=== PATIENT | male | born 1955 | race Caucasian/White ===

== ENCOUNTER → 2017-07-07 | Outpatient (CLI) | payer OTHER ==
[~2017-07-07] MED LIST: CLIN150C17 PO; ENAL20TA PO; HYDR-3454 PO
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
== END ==
LOC: RAD 08:42
PROVIDERS: ATTEND Nurse Practitioner Community Health
DX: R22.2 Localized swelling, mass and lump, trunk (principal)
CPT/HCPCS: 76604

== ENCOUNTER → 2017-07-21 | Outpatient (CLI) | payer OTHER ==
[2017-07-21] MEDS: IOHEXOL 350 MG/ML 100 ML (OMNIPAQUE 350) VIAL IV ONE (08:22)
[2017-07-21] MEDS: NS 100 ML (IVPB) BAG IV ONE (08:22)
--- NOTE | 2017-07-21 09:50 | Diagnostic Imaging Report ---
PROCEDURE: CT chest with and without contrast. TECHNIQUE: Multiple contiguous axial images were obtained through the chest before and after administration of intravenous contrast. INDICATION: Chest wall mass. There are no previous CT examinations available for comparison. The ultrasound of the chest performed on 07/07/2017 failed to show any sign of an abnormal mass or fluid collection in the region of patient's palpable abnormality in the lower thorax just to the left of midline. On this exam, there is no discrete mass or cyst identified in this area either. The xiphoid process on the left is much more prominent than on the right and this may in part account for patient's palpable abnormality. The reconstructed sagittal images do show that there are small defects in the anterior attachment of the diaphragm near midline in this region. A portion of the mesenteric fat has extended through into these defects the anterior aspect of the thorax. However, there is no extension of the stomach or the large or small bowel in this region . The images through the upper abdomen show that the anterior abdominal wall is intact. The upper abdomen where visualized is also unremarkable for an acute abnormality. The spleen, pancreas, adrenals, kidneys, gallbladder, aorta and inferior vena cava where visualized appear to be within normal limits. The liver is not enlarged but the liver does appear to be of lower density than usually seen. This does suggest fatty metamorphosis. The images through the thorax show the heart size is within normal limits. There are coronary artery calcifications evident. The aorta is not abnormally dilated and there is no sign of dissection. The pulmonary arteries were not fully opacified but there is no definite defect to suggest a pulmonary embolus. There are mild chronic interstitial changes involving both lungs. There is no sign of failure, pneumonia or pleural effusion to suggest an acute abnormality. There is no mediastinal or hilar adenopathy. The thyroid gland is generally unremarkable. The bone windows show no evidence for fracture or for destructive lesion. IMPRESSION: 1. There is no mass or abnormal fluid collection in the upper abdomen to account for patient's palpable abnormality. There is a prominent xiphoid process on the left and this may in part account for patient's palpable abnormality. There are also small defects in the diaphragm on each side of the midline and a small amount of mesenteric fat has extended through these defects into the lower thorax. However, there is no herniation of the bowel or stomach into the upper thorax. 2. There is no acute cardiopulmonary abnormality evident. 3. There is coronary artery disease. 4. 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 Dictated by: Dictated on workstation # [id number]
== END ==
LOC: RAD 07:54
PROVIDERS: ATTEND Nurse Practitioner Community Health
DX: I25.10 Atherosclerotic heart disease of native coronary artery without angina pectoris (principal); K44.9 Diaphragmatic hernia without obstruction or gangrene
CPT/HCPCS: 71270

== ENCOUNTER 2018-10-16 19:16 | Emergency (ER) | payer OTHER ==
[~2018-10-16 19:16] MED LIST changes: -HYDR-3454 PO; +HYDR-3455 PO
[2018-10-16] MEDS ORDERED: VALACYCLOVIR 500 MG TAB (VALTREX) PO SCH (19:30)
[2018-10-16] MEDS ORDERED: HYDROcodone/APAP 5 MG/325 MG (LORTAB) TAB PO ONE (19:30)
[2018-10-16] MEDS ORDERED: VALA1000 PO (19:32)
[2018-10-16] MEDS ORDERED: ACHD5005 PO (19:32)
--- NOTE | 2018-10-16 19:33 | ED Integumentary General ---
General Stated Complaint: RASH Source: patient Exam Limitations: no limitations History of Present Illness Date Seen by Provider: Oct 16, 2018 Time Seen by Provider: 19:31 Allergies and Home Medications Allergies Coded Allergies: Penicillins (Unverified Allergy, Mild, 03/18/08) Home Medications Clindamycin HCl 150 Mg Capsule, 150 MG PO TID Prescribed by: RICHARD LOPEZ on 03/04/15 1253 Enalapril Maleate 20 Mg Tablet, 20 MG PO DAILY, (Reported) Hydrocodone/Acetaminophen 1 Each Tablet, 1 EACH PO Q4H PRN for PAIN Prescribed by: RICHARD LOPEZ on 03/04/15 1253 Past Zxpoptl-Ioeuzw-Cgwfol Hx Patient Social History Recent Foreign Travel: No Contact w/Someone Who Travel: No Immunizations Up To Date Tetanus Booster (TDap): Unknown Seasonal Allergies Seasonal Allergies: No Past Medical History Orthopedic Sleep Apnea Currently Using CPAP: Yes Hypertension Reproductive Disorders: No Back Injury, Chronic Back Pain Adverse Reaction/Blood Tranf: No Family Medical History Abdominal aortic aneurysm 19 FATHER Alzheimer's disease 19 MOTHER Cardiovascular disease PATERNAL GRANDFATHER Myocardial infarction PATERNAL GRANDFATHER No Pertinent Family Hx Physical Exam Vital Signs Capillary Refill : Departure Impression Primary Impression: Shingles Disposition: 01 HOME, SELF-CARE Condition: Stable/Unchanged Departure-Patient Inst. Decision time for Depature: 19:31 [facility]errals: [facility] (PCP/Family) Primary Care Physician Patient Instructions: [place] Add. Discharge Instructions: Take medications as directed. Follow-up with [facility] within 1 week for recheck. Return back to the emergency room for worsening symptoms or concerns as needed. Scripts Hydrocodone Bit/Acetaminophen (Hydrocodone/Acetaminophen 5/325mg Tablet) 1 Tab Tab 1-2 EACH PO Q6H PRN for PAIN-MODERATE MDD 10, #14 TAB Prov: KANIKA MILLER 10/16/18 Valacyclovir HCl (Valacyclovir) 1,000 Mg Tablet 1000 MG PO TID for 7 Days, #21 TAB Prov: KANIKA MILLER 10/16/18 KANIKA MILLER Oct 16, 2018 19:33
== END 2018-10-16 19:39 | disposition home or self-care (01) ==
LOC: EDUNIT# 19:16 → ER 19:18
DX: B02.9 Zoster without complications (principal); G47.30 Sleep apnea, unspecified; I10 Essential (primary) hypertension; Z82.49 Family history of ischemic heart disease and other diseases of the circulatory system; Z88.0 Allergy status to penicillin

== ENCOUNTER 2020-04-13 12:18 | Emergency (ER) | payer OTHER ==
[~2020-04-13] VITALS: Ht 175 cm; Wt 90.7 kg
[~2020-04-13 12:18] MED LIST changes: +ACHD5005 PO; -ENAL20TA PO; +ENAL20TA16 PO; +VALA10007 PO
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
--- NOTE | 2020-04-13 13:00 | Diagnostic Imaging Report ---
INDICATION: Right ankle pain. Time of exam 12:51 p.m. Three views of the right ankle were obtained. Alignment is normal. Ankle mortise is well maintained. The talar dome is smooth. No fracture or dislocation is identified. IMPRESSION: No acute bony abnormality is detected. Dictated by: Dictated on workstation # [id number]
[2020-04-13 13:48] VITALS: BP 140/74
== END 2020-04-13 13:48 | disposition home or self-care (01) ==
LOC: EDUNIT# 12:18 → ER 12:19
DX: S93.491A Sprain of other ligament of right ankle, initial encounter (principal); G89.29 Other chronic pain; M54.9 Dorsalgia, unspecified; I10 Essential (primary) hypertension; F17.200 Nicotine dependence, unspecified, uncomplicated; Z82.49 Family history of ischemic heart disease and other diseases of the circulatory system; Z88.0 Allergy status to penicillin; Z79.891 Long term (current) use of opiate analgesic; X50.1XXA Overexertion from prolonged static or awkward postures, initial encounter
CPT/HCPCS: 73610; 99283; L4350

== ENCOUNTER 2020-07-12 19:08 | Emergency (ER) | payer OTHER ==
[~2020-07-12] VITALS: Ht 175 cm; Wt 91.0 kg
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
[2020-07-12] MEDS ORDERED: LIDOCAINE 1% INJ 20 ML 20 ML VIAL ONE (21:34)
[2020-07-12] MEDS ORDERED: LIDOCAINE 1% INJ 20 ML 20 ML VIAL INJ ONE (21:45)
[2020-07-12] MEDS ORDERED: HYDROcodone/APAP 5 MG/325 MG (LORTAB) TAB PO ONE (21:45)
[2020-07-12] MEDS ORDERED: ACHD5005 PO (22:00)
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
[2020-07-12 22:10] VITALS: BP 144/84
[2020-07-12] MEDS ORDERED: RX-HYDROCODONE/APAP 5/325 MG #4 TAB PK PO PRN (22:15)
== END 2020-07-12 22:19 | disposition home or self-care (01) ==
LOC: EDUNIT# 19:08 → ER 19:10
DX: S62.396A Other fracture of fifth metacarpal bone, right hand, initial encounter for closed fracture (principal); S82.51XA Displaced fracture of medial malleolus of right tibia, initial encounter for closed fracture; I10 Essential (primary) hypertension; G89.29 Other chronic pain; M54.9 Dorsalgia, unspecified; Z82.49 Family history of ischemic heart disease and other diseases of the circulatory system; Z88.0 Allergy status to penicillin; Z79.891 Long term (current) use of opiate analgesic; V29.9XXA Motorcycle rider (driver) (passenger) injured in unspecified traffic accident, initial encounter
CPT/HCPCS: 29125; 73120; 73130; 73610; 99284; A4565

== ENCOUNTER 2023-03-07 12:24 | Emergency (ER) | payer MEDICARE, OTHER ==
[~2023-03-07] VITALS: Ht 175.3 cm; Wt 94.0 kg
[~2023-03-07 12:24] MED LIST changes: -CLIN150C17 PO; +CLIN150C20 PO; +ENAL-70 PO; -ENAL20TA16 PO
--- NOTE | 2023-03-07 12:44 | ED Upper Extremity ---
General Chief Complaint: Upper Extremity Stated Complaint: SPASM IN LT ARM AND SOMETIMES IN NECK Nursing Triage Note: Patient c/o interm. Lt. arm spasms that started 2 days ago. Patient denies any injury to his Lt. arm. Patient denies any neck or back pain that is new in last couple days. Patient denies any recent falls. Source: patient Exam Limitations: no limitations History of Present Illness Date Seen by Provider: Mar 07, 2023 Time Seen by Provider: 12:43 Initial Comments 67-year-old male presents to the ER with complaints of tremors and muscle spasms in left arm which has been going on for last couple days. The tremors are intermittent. States it kind of feels like his muscles are spasming. He states the tremors are more likely to occur when he is lifting or using his arm. Allergies and Home Medications Allergies Coded Allergies: Penicillins (Unverified Allergy, Mild, 03/18/08) Patient Home Medication List Home Medication List Reviewed: Yes Clindamycin HCl (Clindamycin HCl) 150 Mg Capsule, 150 MG PO TID Prescribed by: RICHARD LOPEZ on 03/04/15 1253 Cyclobenzaprine HCl (Cyclobenzaprine HCl) 10 Mg Tablet, 10 MG PO TID Prescribed by: Jackelin Kirkpatrick on 03/07/23 1553 Enalapril Maleate (Enalapril Maleate) 20 Mg Tablet, 20 MG PO DAILY, (Reported) Entered as Reported by: RENETTA DIAZ on 03/04/15 1023 Hydrocodone Bit/Acetaminophen (Lortab 5 Mg Tablet) 1 Tab Tab, 1-2 EACH PO Q6H PRN for PAIN-MODERATE Prescribed by: KANIKA MILLER on 10/16/18 193 Hydrocodone/Acetaminophen (Vicodin 5-300 mg Tablet) 1 Each Tablet, 1 EACH PO Q4H PRN for PAIN Prescribed by: RICHARD LOPEZ on 03/04/15 1253 Hydrocodone/Acetaminophen (Hydrocodone-Acetamin 5-325 mg) 1 Each Tablet, 1 EACH PO Q6H PRN for PAIN-BREAKTHROUGH Prescribed by: JOSE GONZALEZ on 07/12/200 Metformin HCl (Metformin HCl) 500 Mg Tablet, 500 MG PO BID Prescribed by: Jackelin Kirkpatrick on 03/07/23 1553 Valacyclovir HCl (Valacyclovir) 1,000 Mg Tablet, 1,000 MG PO TID Prescribed by: KANIKA MILLER on 10/16/181931 Review of Systems Constitutional: see HPI Past Hpkoinj-Zcjpmx-Baevae Hx Patient Social History Tobacco Use?: Yes Tobacco type used: Cigarettes Smoking Status: Current Everyday Smoker Use of E-Cig and/or Vaping dev: No Substance use?: No Alcohol Use?: Yes Alcohol Frequency: Once in a while Immunizations Up To Date Tetanus Booster (TDap): Unknown Influenza Vaccine Up-to-Date: No; Not Current Seasonal Allergies Seasonal Allergies: No Past Medical History Surgery/Hospitalization HX: HTN Surgeries: Yes (TEETH EXTRACTIONS, LEFT ANKLE ORIF) Orthopedic Respiratory: Yes Sleep Apnea, COPD Currently Using CPAP: Yes Cardiac: Yes Hypertension Neurological: No Reproductive Disorders: No Gastrointestinal: No Musculoskeletal: Yes Back Injury, Chronic Back Pain Endocrine: No Cancer: No Psychosocial: No Integumentary: No Blood Disorders: No Adverse Reaction/Blood Tranf: No Family Medical History Abdominal aortic aneurysm 19 FATHER Alzheimer's disease 19 MOTHER Cardiovascular disease PATERNAL GRANDFATHER Myocardial infarction PATERNAL GRANDFATHER No Pertinent Family Hx Physical Exam Vital Signs Vital Signs - First Documented 03/07/23 03/07/23 12:31 15:50 Temp 36.7 Pulse 90 Resp 18 B/P (MAP) 173/98 (123) Pulse Ox 97 O2 Delivery Room Air Capillary Refill : Height, Weight, BMI Height: 5'9.00" Weight: 230lbs. 6.0oz. [id number]; 30.00 BMI Method:Actual General Appearance: WD/WN, no apparent distress Neck: non-tender, full range of motion, supple, normal inspection Cardiovascular: regular rate, rhythm Respiratory: lungs clear, normal breath sounds, no respiratory distress, no accessory muscle use Back: normal inspection, no vertebral tenderness Shoulder: no evidence of injury, normal ROM (Tremor with movement) Elbow/Forearm: normal ROM (Tremor with movement), Left Hand: normal ROM Neurologic/Psychiatric: alert, normal mood/affect Skin: normal color, warm/dry Progress/Results/Core Measures Results/Orders Lab Results Laboratory Tests Test 03/07/23 13:21 03/07/23 14:15 03/07/23 14:42 03/07/23 15:08 Range/Units White Blood Count 12.0 H 4.3-11.0 10^3/uL Red Blood Count 6.04 H 4.30-5.52 10^6/uL Hemoglobin 17.8 H 13.3-17.7 g/dL Hematocrit 51 40-54 % Mean Corpuscular Volume 84 80-99 fL Mean Corpuscular Hemoglobin 30 25-34 pg Mean Corpuscular Hemoglobin Concent 35 32-36 g/dL Red Cell Distribution Width 12.5 10.0-14.5 % Platelet Count 194 130-400 10^3/uL Mean Platelet Volume 11.0 9.0-12.2 fL Immature Granulocyte % (Auto) 1 % Neutrophils (%) (Auto) 63 42-75 % Lymphocytes (%) (Auto) 24 12-44 % Monocytes (%) (Auto) 10 0-12 % Eosinophils (%) (Auto) 2 0-10 % Basophils (%) (Auto) 1 0-10 % Neutrophils # (Auto) 7.6 1.8-7.8 10^3/uL Lymphocytes # (Auto) 2.8 1.0-4.0 10^3/uL Monocytes # (Auto) 1.2 H 0.0-1.0 10^3/uL Eosinophils # (Auto) 0.2 0.0-0.3 10^3/uL Basophils # (Auto) 0.1 0.0-0.1 10^3/uL Immature Granulocyte # (Auto) 0.1 0.0-0.1 10^3/uL Sodium Level 126 L 135-145 MMOL/L Potassium Level 4.4 3.6-5.0 MMOL/L Chloride Level 94 L 98-107 MMOL/L Carbon Dioxide Level 22 21-32 MMOL/L Anion Gap 10 5-14 MMOL/L Blood Urea Nitrogen 8 7-18 MG/DL Creatinine 1.15 0.60-1.30 MG/DL Estimat Glomerular Filtration Rate 70 BUN/Creatinine Ratio 7 Glucose Level 630 *H 70-105 MG/DL Calcium Level 9.2 8.5-10.1 MG/DL Corrected Calcium 9.3 8.5-10.1 MG/DL Total Bilirubin 0.4 0.1-1.0 MG/DL Aspartate Amino Transf (AST/SGOT) 16 5-34 U/L Alanine Aminotransferase (ALT/SGPT) 23 0-55 U/L Alkaline Phosphatase 182 H 40-136 U/L Total Protein 7.1 6.4-8.2 GM/DL Albumin 3.9 3.2-4.5 GM/DL Venous Blood pH 7.38 7.31-7.41 Venous Blood Partial Pressure CO2 47 40-52 MMHG Venous Blood HCO3 27 22-28 MMOL/L Urine Color YELLOW Urine Clarity CLEAR Urine pH 5.5 5-9 Urine Specific Virgin <=1.005 1.016-1.022 Urine Protein NEGATIVE NEGATIVE Urine Glucose (UA) 3+ H NEGATIVE Urine Ketones NEGATIVE NEGATIVE Urine Nitrite NEGATIVE NEGATIVE Urine Bilirubin NEGATIVE NEGATIVE Urine Urobilinogen 0.2 < = 1.0 MG/DL Urine Leukocyte Esterase NEGATIVE NEGATIVE Urine RBC (Auto) NEGATIVE NEGATIVE Urine RBC NONE /HPF Urine WBC NONE /HPF Urine Squamous Epithelial Cells 0-2 /HPF Urine Crystals NONE /LPF Urine Bacteria NEGATIVE /HPF Urine Casts NONE /LPF Urine Mucus NEGATIVE /LPF Urine Culture Indicated NO Glucometer 350 H 70-110 MG/DL My Orders Orders - JACKELIN HARDIN APRN Cbc With Automated Diff (03/07/23 12:51) Comprehensive Metabolic Panel (03/07/23 12:51) Ed Iv/Invasive Line Start (03/07/23 12:58) Orphenadrine Inj (Ed Only) (Orphenadrine (03/07/23 13:15) Venous Blood Gas (03/07/23 14:01) Ua Culture If Indicated (03/07/23 14:01) Ns Iv 1000 Ml (Ns Iv 1000 Ml) (03/07/23 14:15) Insulin (Regular) Per Unit (Insulin (Reg (03/07/23 14:15) Medications Given in ED Current Medications Medications Dose Ordered Sig/Sanchez Route Start Time Stop Time Status Last Admin Dose Admin Insulin Human Regular 5 unit ONCE ONCE IV 03/07/23 14:15 03/07/23 14:16 DC 03/07/23 14:17 5 UNIT Orphenadrine Citrate 60 mg ONCE ONCE IM 03/07/23 13:15 03/07/23 13:16 DC 03/07/23 13:28 60 MG Vital Signs/I&O 03/07/23 03/07/23 12:31 15:50 Temp 36.7 Pulse 90 83 Resp 18 16 B/P (MAP) 173/98 (123) 163/79 Pulse Ox 97 O2 Delivery Room Air Room Air Blood Pressure Mean: 123 Progress Progress Note : Progress Note Patient seen and evaluated, resting comfortably in bed, no acute distress. Based on exam and symptoms, work-up initiated, CBC and CMP, Norflex ordered. 1402 Labs reviewed. CMP shows slightly elevated WBC 12.0, slightly elevated RBC 6.04, slightly elevated hemoglobin 17.8. CMP shows decreased sodium 126, decreased chloride 94, critically elevated glucose 630. IV fluids and IV insulin ordered at this time. Urinalysis and venous blood gas also ordered. 1537 additional labs reviewed. Venous blood gas shows normal pH. Urinalysis negative for ketones, does show 3+ glucose. Blood sugar improved to 350 after IV fluids and insulin. Results discussed with patient. Patient informed that he is diabetic and will need to be started on metformin. Will discharge with prescription for metformin. Diet education also provided. Patient instructed that he needs to follow-up with primary care provider for management of his diabetes. Muscle spasms and tremors may be related to decreased sodium on labs. Patient reports improved symptoms after IV fluids and Norflex. Will discharge with prescription for Flexeril as well. Discharge instructions and return precautions provided. Departure Impression Primary Impression: Muscle spasm Additional Impressions: Hyponatremia Hyperglycemia Diabetes Disposition: HOME, SELF-CARE Condition: Stable Departure-Patient Inst. Decision time for Depature: 15:37 Referrals: [facility] (PCP) Primary Care Physician Patient Instructions: Diabetes and diet, Muscle Spasm ED Add. Discharge Instructions: Take metformin twice a day for your diabetes. It can cause diarrhea, this usually improves if you continue taking it. Take Flexeril up to 3 times a day as needed for muscle spasms. You need to follow-up with a primary care provider to manage your diabetes. They will be responsible for refills of your medications. You should avoid breads, pastas, and sweets. Best foods to eat for diabetes are meats and vegetables. You should also limit your fruit intake. Return for any new, concerning, or worsening symptoms. All discharge instructions reviewed with patient and/or family. Voiced understanding. Scripts Cyclobenzaprine HCl (Cyclobenzaprine HCl) 10 Mg Tablet 10 MG PO TID, #21 TAB 0 Refills Prov: JACKELIN HARDIN APRN 03/07/23 Metformin HCl (Metformin HCl) 500 Mg Tablet 500 MG PO BID for 30 Days, #60 TAB 0 Refills Prov: JACKELIN HARDIN APRN 03/07/23 JACKELIN HARDIN APRN Mar 07, 2023 12:44
[2023-03-07] MEDS ORDERED: ORPHENADRINE 60 MG/2 ML AMP (ED ONLY) IV ONE (13:00)
[2023-03-07] MEDS ORDERED: ORPHENADRINE 60 MG/2 ML AMP (ED ONLY) IM ONE (13:15)
[2023-03-07 13:27] LABS: BASOPHILS # (AUTO) 0.1 10^3/uL (0.0-0.1); BASOPHILS % (AUTO) 1 % (0-10); EOSINOPHILS # (AUTO) 0.2 10^3/uL (0.0-0.3); EOSINOPHILS % (AUTO) 2 % (0-10); HEMATOCRIT 51 % (40-54); HEMOGLOBIN 17.8 g/dL (13.3-17.7); LYMPHOCYTES # (AUTO) 2.8 10^3/uL (1.0-4.0); LYMPHOCYTES % (AUTO) 24 % (12-44); MEAN CORPUSCULAR HEMOGLOBIN 30 pg (25-34); MEAN CORPUSCULAR HGB CONC 35 g/dL (32-36); MEAN CORPUSCULAR VOLUME 84 fL (80-99); MONOCYTES # (AUTO) 1.2 10^3/uL (0.0-1.0); MONOCYTES % (AUTO) 10 % (0-12); NEUTROPHILS # (AUTO) 7.6 10^3/uL (1.8-7.8); NEUTROPHILS % (AUTO) 63 % (42-75); PLATELET COUNT 194 10^3/uL (130-400)
[2023-03-07 13:49] LABS: ALBUMIN 3.9 GM/DL (3.2-4.5); BILIRUBIN,TOTAL 0.4 MG/DL (0.1-1.0); CALCIUM 9.2 MG/DL (8.5-10.1); CREATININE SERUM 1.15 MG/DL (0.60-1.30); POTASSIUM 4.4 MMOL/L (3.6-5.0); TOTAL PROTEIN 7.1 GM/DL (6.4-8.2)
[2023-03-07] MEDS ORDERED: NS IV 1000 ML 1,000 ML IV SCH (14:15)
[2023-03-07] MEDS ORDERED: inSUlin (REGULAR) HUMAN 1 UNIT/0.01 ML (CHARGE PER UNIT) IV ONE (14:15)
[2023-03-07 15:11] LABS: BILIRUBIN,URINE NEGATIVE (NEGATIVE); CLARITY,URINE CLEAR; COLOR,URINE YELLOW; GLUCOSE, URINE (UA) 3+ (NEGATIVE); KETONES,URINE NEGATIVE (NEGATIVE); NITRITE,URINE NEGATIVE (NEGATIVE); PH,URINE 5.5 (5-9); PROTEIN,URINE NEGATIVE (NEGATIVE)
[2023-03-07 15:12] LABS: BACTERIA,URINE NEGATIVE /HPF; LEUKOCYTE ESTERASE ,URINE NEGATIVE (NEGATIVE); SQUAMOUS EPITHELIAL CELL,UR 0-2 /HPF
[2023-03-07] MEDS ORDERED: CYCL10TA25 PO ×2 (15:40→15:53)
[2023-03-07] MEDS ORDERED: METF-397 PO ×2 (15:40→15:53)
[2023-03-07 15:50] VITALS: BP 163/79
== END 2023-03-07 15:50 | disposition home or self-care (01) ==
LOC: EDUNIT# 12:24 → ER 12:28
DX: M62.838 Other muscle spasm (principal); E11.65 Type 2 diabetes mellitus with hyperglycemia; E87.1 Hypo-osmolality and hyponatremia; G47.30 Sleep apnea, unspecified; F17.210 Nicotine dependence, cigarettes, uncomplicated; Z99.89 Dependence on other enabling machines and devices; Z28.310 Unvaccinated for COVID-19
CPT/HCPCS: 36415; 80053; 81000; 82805; 82947; 85025

== ENCOUNTER 2023-05-11 18:09 | Inpatient (IN) | payer MEDICARE ==
[~2023-05-11] VITALS: Ht 175 cm; Wt 98.4 kg
[~2023-05-11 18:09] MED LIST changes: +CYCL10TA25 PO; +METF-397 PO
--- NOTE | 2023-05-11 18:37 | ED Upper Extremity ---
General Chief Complaint: Upper Extremity Stated Complaint: POSS STROKE, SPASMS IN LT ARM, LT HAND SWOLLEN Source: patient, old records History of Present Illness Date Seen by Provider: May 11, 2023 Time Seen by Provider: 18:23 Initial Comments PT ARRIVES VIA POV WITH A MALE FRIEND--SENT HERE FROM [facility] WANTS WHEELCHAIR ON ARRIVAL, BUT PT IS ABLE TO GET IN AND OUT OF WHEELCHAIR AND AMBULATE ON HIS OWN, HAS A CANE--WITHOUT DIFFICULTY C/O SPASMS TO LEFT ARM WHEN HE TURNS HIS HEAD/NECK TO THE LEFT FOR THE LAST "2 WEEKS" PT STATES LOOKING STRAIGHT AHEAD MAKES IT GO AWAY NO PAIN AT THIS TIME NO NUMBNESS OR TINGLING PT STATES HIS LEFT HAND IS SWOLLEN, BUT PT IS CONSTANTLY HOLDING HIS LEFT ARM AT THE WRIST, AND IS HOLDING IT IN DEPENDENT POSITION HE IS ABLE TO USE HIS LEFT HAND AND MOVE HIS LEFT ARM TO SOME DEGREE NO INJURY TO NECK OR ARM NO HEADACHE NO VISION CHANGES NO DIZZINESS WAS SEEN HERE 2022 FOR THIS EXACT SAME COMPLAINT, SO SYMPTOMS HAVE ACTUALLY BEEN GOING ON FOR AT LEAST 2 MONTHS. HE HAS NOT SEEN ANYONE ELSE BEFORE OR SINCE THEN, UNTIL TONIGHT SYMPTOMS NO DIFFERENT TONIGHT OF NOTE, LAB DONE AT THAT VISIT AND GLUCOSE WAS 630. PT HAD NOT BEEN DX WITH DIABETES PRIOR TO THAT. HE WAS DISMISSED WITH RX FOR METFORMIN--PT STATES HE TOOK THEM ALL. HE HAS NOT FOLLOWED UP WITH [facility] FOR THAT PROBLEM PT STATES HE HAS NO MEDICAL PROBLEMS AND DOES NOT TAKE ANY MEDICATIONS--OLD RECORDS LIST HTN, SMOKES 1 PPD, OCCASIONAL ETOH--CLAIMS ONLY 1 DRINK IN THE LAST YEAR. DENIES DRUG USE HAS HAD LEFT ANKLE FX/ORIF AND LEFT HAND FX/ORIF. NO OTHER SURGERIES PT IS NOT COVID OR FLU VACCINATED PCP: [facility] Allergies and Home Medications Allergies Coded Allergies: Penicillins (Unverified Allergy, Mild, 03/18/08) Patient Home Medication List Home Medication List Reviewed: Yes Clindamycin HCl (Clindamycin HCl) 150 Mg Capsule, 150 MG PO TID Prescribed by: RICHARD LOPEZ on 03/04/15 1253 Cyclobenzaprine HCl (Cyclobenzaprine HCl) 10 Mg Tablet, 10 MG PO TID Prescribed by: Jackelin Kirkpatrick on 03/07/23 1553 Enalapril Maleate (Enalapril Maleate) 20 Mg Tablet, 20 MG PO DAILY, (Reported) Entered as Reported by: RENETTA DIAZ on 03/04/15 1023 Hydrocodone Bit/Acetaminophen (Lortab 5 Mg Tablet) 1 Tab Tab, 1-2 EACH PO Q6H PRN for PAIN-MODERATE Prescribed by: KNAIKA MILLER on 10/16/181931 Hydrocodone/Acetaminophen (Vicodin 5-300 mg Tablet) 1 Each Tablet, 1 EACH PO Q4H PRN for PAIN Prescribed by: RICHARD LOPEZ on 03/04/15 1253 Hydrocodone/Acetaminophen (Hydrocodone-Acetamin 5-325 mg) 1 Each Tablet, 1 EACH PO Q6H PRN for PAIN-BREAKTHROUGH Prescribed by: JOSE GONZALEZ on 07/12/20 2200 Metformin HCl (Metformin HCl) 500 Mg Tablet, 500 MG PO BID Prescribed by: Jackelin Kirkpatrick on 03/07/23 1553 Valacyclovir HCl (Valacyclovir) 1,000 Mg Tablet, 1,000 MG PO TID Prescribed by: KANIKA MILLER on 10/16/181931 Review of Systems Constitutional: no symptoms reported EENTM: no symptoms reported Respiratory: no symptoms reported Cardiovascular: no symptoms reported Gastrointestinal: no symptoms reported Genitourinary: no symptoms reported Musculoskeletal: see HPI Skin: no symptoms reported Psychiatric/Neurological: See HPI Past Sbkytkc-Wtdjok-Vywlau Hx Patient Social History Tobacco Use?: Yes Tobacco type used: Cigarettes Smoking Status: Current Everyday Smoker Substance use?: Yes Substance type: Methamphetamine Alcohol Use?: Yes Alcohol Frequency: Once in a while Immunizations Up To Date Tetanus Booster (TDap): Unknown Seasonal Allergies Seasonal Allergies: No Past Medical History Surgery/Hospitalization HX: HTN Surgeries: Yes (TEETH EXTRACTIONS, LEFT ANKLE ORIF; SCROTAL ABSCESS I&D 2014) Orthopedic Respiratory: Yes Sleep Apnea, COPD Currently Using CPAP: Yes Cardiac: Yes Hypertension Neurological: No Reproductive Disorders: No Gastrointestinal: No Musculoskeletal: Yes (LEFT ANKLE FX/ORIF; LEFT HAND FX) Back Injury, Chronic Back Pain, Fractures Endocrine: No Cancer: No Psychosocial: No Integumentary: No Blood Disorders: No Adverse Reaction/Blood Tranf: No Family Medical History Abdominal aortic aneurysm 19 FATHER Alzheimer's disease 19 MOTHER Cardiovascular disease PATERNAL GRANDFATHER Myocardial infarction PATERNAL GRANDFATHER No Pertinent Family Hx SOCIAL HISTORY: -SMOKES 1 PPD -ETOH--"OCCASIONAL USE" -DRUGS UDS + FOR AMPHETAMINES / METHAMPHETAMINES ON 05/11/23--PT STATES HE SMOKES IT. DENIES IV USE. Physical Exam Vital Signs Vital Signs - First Documented 05/11/23 05/11/23 05/12/23 18:22 22:47 00:58 Temp 36.8 Pulse 105 Resp 18 B/P (MAP) 180/96 (124) Pulse Ox 99 O2 Delivery Room Air O2 Flow Rate 2.00 FiO2 30 Capillary Refill : Height, Weight, BMI Height: 5'9.00" Weight: 230lbs. 6.0oz. 104.926473ml; 30.00 BMI Method:Actual General Appearance: WD/WN, no apparent distress, other (FILTHY, UNKEMPT, MALODOROUS; HE IS TALKATIVE, JOVIAL, LAUGHING. DOES NOT APPEAR TO BE IN ANY DISCOMFORT OR DISTRESS) HEENT: PERRL/EOMI, other (EDENTULOUS. WEARS GLASSES, WHICH ARE FILTHY) Cardiovascular: regular rate, rhythm Respiratory: normal breath sounds Gastrointestinal: non tender, soft Back: normal inspection, no CVA tenderness, no vertebral tenderness Shoulder: normal inspection Elbow/Forearm: normal inspection Wrist: Yes normal inspection Hand: no evidence of injury, swelling (MILD SWELLING OF LEFT HAND, PT CONSTANTLY HOLDING HIS LEFT WRIST. ) Reflexes: 2+ bicep (R), 2+ bicep (L) Neurologic/Tendon: other (ON TURNING HIS HEAD TO THE LEFT, THERE IS [id number] MOVEMENTS OF HIS LEFT ARM, WITH CONTRACTURES OF HIS LEFT HAND AND ELBOW, WITH SLIGHT TONIC-CLONIC ACTIVITY OF HEAD, AND EYES FIXED TO THE LEFT. PT IS AWAKE/ALERT, ORIENTED AND TALKING THROUGHOUT THE EPISODE, THIS DOES RESOLVE WHEN HE VOLUNTARILY TURNS HIS HEAD BACK TO MIDLINE OR TO THE RIGHT. THIS ONLY OCCURS AFTER HE TURNS HIS HEAD TO THE LEFT. THERE IS NO INVOLVEMENT OF HIS LEFT OR TRUNK. THE SAME OCCURRS WITH RAISING OF HIS LEFT ARM, EVEN WHEN LOOKING STRAIGHT AHEAD OR THE RIGHT. DTR'S INTACT. 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, alert, normal mood/affect, oriented x 3, other (PT DOES HAVE SOME ATAXIC MOVEMENTS OF HIS LEFT ARM, BUT IS ABLE TO MOVE IT--HAS GROSS MOTOR MOVEMENT ) Skin: normal color, warm/dry Progress/Results/Core Measures Results/Orders Lab Results Laboratory Tests Test 05/11/23 18:50 05/11/23 19:58 05/12/23 00:46 05/12/23 00:55 Range/Units White Blood Count 13.9 H 4.3-11.0 10^3/uL Red Blood Count 5.92 H 4.30-5.52 10^6/uL Hemoglobin 18.0 H 13.3-17.7 g/dL Hematocrit 51 40-54 % Mean Corpuscular Volume 85 80-99 fL Mean Corpuscular Hemoglobin 30 25-34 pg Mean Corpuscular Hemoglobin Concent 36 32-36 g/dL Red Cell Distribution Width 12.4 10.0-14.5 % Platelet Count 206 130-400 10^3/uL Mean Platelet Volume 11.1 9.0-12.2 fL Immature Granulocyte % (Auto) 1 % Neutrophils (%) (Auto) 61 42-75 % Lymphocytes (%) (Auto) 25 12-44 % Monocytes (%) (Auto) 12 0-12 % Eosinophils (%) (Auto) 1 0-10 % Basophils (%) (Auto) 1 0-10 % Neutrophils # (Auto) 8.5 H 1.8-7.8 10^3/uL Lymphocytes # (Auto) 3.4 1.0-4.0 10^3/uL Monocytes # (Auto) 1.6 H 0.0-1.0 10^3/uL Eosinophils # (Auto) 0.2 0.0-0.3 10^3/uL Basophils # (Auto) 0.1 0.0-0.1 10^3/uL Immature Granulocyte # (Auto) 0.1 0.0-0.1 10^3/uL Erythrocyte Sedimentation Rate 1 0-30 MM/HR Prothrombin Time 12.8 12.2-14.7 SEC INR Comment 0.9 0.8-1.4 Activated Partial Thromboplast Time 28 24-35 SEC Sodium Level 130 L 135-145 MMOL/L Potassium Level 3.7 3.6-5.0 MMOL/L Chloride Level 95 L 98-107 MMOL/L Carbon Dioxide Level 21 21-32 MMOL/L Anion Gap 14 5-14 MMOL/L Blood Urea Nitrogen 14 7-18 MG/DL Creatinine 1.08 0.60-1.30 MG/DL Estimat Glomerular Filtration Rate 76 BUN/Creatinine Ratio 13 Glucose Level 379 H 70-105 MG/DL Calcium Level 9.3 8.5-10.1 MG/DL Corrected Calcium 9.3 8.5-10.1 MG/DL Magnesium Level 2.0 1.6-2.4 MG/DL Total Bilirubin 0.6 0.1-1.0 MG/DL Aspartate Amino Transf (AST/SGOT) 14 5-34 U/L Alanine Aminotransferase (ALT/SGPT) 19 0-55 U/L Alkaline Phosphatase 137 H 40-136 U/L Total Creatine Kinase 64 30-200 U/L Creatine Kinase MB 3.5 <6.6 NG/ML Myoglobin 37.5 10.0-92.0 NG/ML C-Reactive Protein High Sensitivity 0.35 0.00-0.50 MG/DL Total Protein 7.4 6.4-8.2 GM/DL Albumin 4.0 3.2-4.5 GM/DL Beta-Hydroxybutyrate (Chem panel) 0.15 0.00-0.27 MMOL/L TSH [place] Testing 1.38 0.35-4.94 UIU/ML Serum Alcohol < 10 <10 MG/DL Urine Color YELLOW Urine Clarity CLEAR Urine pH 5.5 5-9 Urine Specific Hall 1.010 L 1.016-1.022 Urine Protein NEGATIVE NEGATIVE Urine Glucose (UA) 3+ H NEGATIVE Urine Ketones NEGATIVE NEGATIVE Urine Nitrite NEGATIVE NEGATIVE Urine Bilirubin NEGATIVE NEGATIVE Urine Urobilinogen 0.2 < = 1.0 MG/DL Urine Leukocyte Esterase NEGATIVE NEGATIVE Urine RBC (Auto) TRACE H NEGATIVE Urine RBC RARE /HPF Urine WBC NONE /HPF Urine Squamous Epithelial Cells 2-5 /HPF Urine Crystals NONE /LPF Urine Bacteria TRACE /HPF Urine Casts NONE /LPF Urine Mucus NEGATIVE /LPF Urine Culture Indicated NO Urine Opiates Screen NEGATIVE NEGATIVE Urine Oxycodone Screen NEGATIVE NEGATIVE Urine Methadone Screen NEGATIVE NEGATIVE Urine Barbiturates Screen NEGATIVE NEGATIVE Ur Tricyclic Antidepressants Screen NEGATIVE NEGATIVE Urine Phencyclidine Screen NEGATIVE NEGATIVE Urine Amphetamines Screen POSITIVE H NEGATIVE Urine Methamphetamines Screen POSITIVE H NEGATIVE Urine Benzodiazepines Screen NEGATIVE NEGATIVE Urine Cocaine Screen NEGATIVE NEGATIVE Urine Cannabinoids Screen NEGATIVE NEGATIVE Glucometer 305 H 70-110 MG/DL Arterial Blood pH 7.44 H 7.37-7.43 Arterial Blood Partial Pressure CO2 38 35-45 MMHG Arterial Blood Partial Pressure O2 127 H 79-93 MMHG Arterial Blood HCO3 26 23-27 MMOL/L Arterial Blood Total CO2 27.0 21.0-31.0 MMOL/L Arterial Blood Oxygen Saturation 100 94-100 % Arterial Blood Base Excess 1.7 -2.5-2.5 MMOL/L Blood Gas Ventilator Setting NO Blood Gas Inspired Oxygen 3L Test 05/12/23 01:47 Range/Units Glucometer 318 H 70-110 MG/DL My Orders Orders - ROXANNE MALDONADO DO Ed Iv/Invasive Line Start (05/11/23 18:28) Ekg Tracing (05/11/23 18:28) Monitor-Rhythm Ecg Trace Only (05/11/23 18:28) Ct Head/Cervical Spine Wo (05/11/23 18:28) Chest 1 View, Ap/Pa Only (05/11/23 18:28) Alcohol (05/11/23 18:28) Cbc And Automated Diff (05/11/23 18:) Comprehensive Metabolic Panel (05/11/23 18:) Creatine Kinase (05/11/23 18:28) Creatine Kinase Mb (05/11/23 18:28) Hs C Reactive Protein (05/11/23 18:28) Drug Screen Stat (Urine) (05/11/23 18:28) Magnesium (05/11/23 18:28) Protime With Inr (05/11/23 18:28) Partial Thromboplastin Time (05/11/23 18:28) Thyroid Analyzer (05/11/23 18:28) Ua Culture If Indicated (05/11/23 18:28) Erythrocyte Sedimentation Rate (05/11/23 18:28) Myoglobin Serum (05/11/23 18:28) Ct Angio Head/Neck (05/11/23 19:49) Ct Head Perfusion W/ Contrast (05/11/23 19:49) Iohexol Injection (Omnipaque 350 Mg/Ml 1 (05/11/23 20:00) Received Contrast (Hold Metformin- Contr (05/11/23 20:00) Ns (Ivpb) 100 Ml (Sodium Chloride 0.9% 1 (05/11/23 20:00) Aspirin Chewable Tablet (Aspirin Chewabl (05/11/23 22:15) Levetiracetam 1000 Mg/Ns 100ml (Keppra I (05/11/23 22:15) Lorazepam Injection (Lorazepam Injection (05/11/23 22:11) Lorazepam Injection (Lorazepam Injection (05/11/23 22:30) Labetalol Injection (Sdv) (Labetalol Inj (05/11/23 22:30) Beta Hydroxybutyrate (05/11/23 22:26) Hemoglobin A1c (05/11/23 22:26) Medications Given in ED Current Medications Medications Dose Ordered Sig/Sanchez Route Start Time Stop Time Status Last Admin Dose Admin Iohexol 150 ml ONCE ONCE IV 05/11/23 20:00 05/11/23 20:01 DC 05/11/23 20:24 120 ML Labetalol HCl 20 mg ONCE ONCE IV 05/11/23 22:30 05/11/23 22:31 DC 05/11/23 22:27 20 MG Levetiracetam 100 ml @ 400 mls/hr ONCE ONCE IV 05/11/23 22:15 05/11/23 22:29 DC 05/11/23 22:24 400 MLS/HR Lorazepam 2 mg ONCE ONCE IVP 05/11/23 22:30 05/11/23 22:31 DC 05/11/23 22:11 1 MG Sodium Chloride 100 ml ONCE ONCE IV 05/11/23 20:00 05/11/23 20:01 DC 05/11/23 20:25 100 ML Vital Signs/I&O 05/11/23 05/11/23 05/11/23 05/11/23 18:22 22:47 22:50 22:55 Temp 36.8 Pulse 105 78 80 Resp 18 16 B/P (MAP) 180/96 (124) 132/86 Pulse Ox 99 O2 Delivery Room Air Nasal Cannula Nasal Cannula O2 Flow Rate 2.00 2.00 05/11/23 05/12/23 05/12/23 05/12/23 23:00 00:00 00:04 00:30 Temp 36.1 36.4 Pulse 78 89 Resp 22 B/P (MAP) 135/78 (97) 144/86 (105) Pulse Ox 98 98 O2 Delivery Nasal Cannula Nasal Cannula Nasal Cannula O2 Flow Rate 2.00 3.00 3.00 05/12/23 05/12/23 05/12/23 05/12/23 00:55 00:58 01:00 01:00 Pulse 86 86 90 92 Resp 21 B/P (MAP) 135/79 (97) Pulse Ox 98 98 98 O2 Delivery NIV CPAP O2 Flow Rate 30.00 30.00 FiO2 30 05/12/23 05/12/23 01:19 02:00 Temp 36.3 Pulse 76 B/P (MAP) 147/68 (94) Pulse Ox 97 O2 Delivery NIV CPAP O2 Flow Rate 30.00 Progress Progress Note : Progress Note VITALS ON ARRIVAL: TEMP 36.8, HR 105, RR 18, BP 180/96, O2 SAT 99% ON ROOM AIR LABS: -CBC WITH WBC 13.9, HGB 18.0, PLT 206,000 -CMP WITH NA 130, K 3.7, BUN 14, CR 1.09, GLU 379, LFT'S NORMAL -MG 2.0 -CK, CK-MB, MYOGLOBIN ALL NORMAL -CRP 0.35 -SED RATE 1 -TSH 1.38 -BETAHYDROXYBUTYRATE 0.15 -PT/PTT/INR NORMAL -UA WITH 3+ GLUCOSE -UDS + FOR AMPHETAMINES/METHAPHETAMINES -ETOH NEGATIVE EKG UNREMARKABLE CXR UNREMARKABLE CT HEAD, CT ANGIOGRAM HEAD/NECK AND CT HEAD PERFUSION DO NOT SHOW ANY ACUTE PROCESS, OR BLEED OR TUMOR/MASS OR EDEMA OR LARGE VESSEL OCCLUSION. 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 2208--PT HAVING A GRAND MAL, TOTAL BODY SEIZURE, WITH HEAD TURNED TO LEFT, AND INCONTINENCE. ATIVAN AND KEPPRA ORDERED. SEIZURE LASTED 2 1/2 MINUTES, WITH POST-ICTAL STATE. NO HYPOXIA, BUT DID HAVE SNOROUS BREATHING AFTERWARDS. NO INJURY. GIVEN LABETALOL FOR PERSISTENT HTN--180'S/100'S. HR 110'S BP DOWN TO 130'S/80'S AND HR DOWN TO 80'S AT TIME OF ADMIT. DISCUSSED TEST RESULTS, NEED FOR ADMIT AND PT IS AGREEABLE TO PLAN REVIEWED PRIOR RECORDS, INCLUDING ER VISITS. Initial ECG Impression Date: May 11, 2023 Initial ECG Impression Time: 18:38 Initial ECG Rate: 103 Initial ECG Rhythm: S.Tach Initial ECG Intervals [place] 168 QRS 107 QT/QTC 354/414 Initial ECG Impression: Nonspecific Changes (INCOMPLETE RBBB) Initial ECG Comparisson: No Previous ECG Available Comment INTERPRETED BY ME Diagnostic Imaging Comments CXR--PER RADIOLOGIST REPORT AT 1942 FINDINGS: Heart size and pulmonary vasculature are normal. The lungs are clear without consolidation, pleural effusion, or pneumothorax. Degenerative changes of the thoracic spine. Osseous structures are otherwise intact. IMPRESSION: 1. No acute radiographic abnormality in the chest. CT HEAD/CERVICAL SPINE--PER RADIOLOGIST REPORT AT 1942 FINDINGS: Head: There is a chronic small focus of encephalomalacia in the right temporal lobe at the anteroinferior middle cranial fossa. Cerebral cortical volume showing some mild generalized atrophy. No hemorrhage. No acute extra-axial fluid collection. No edema or evidence for elevated pressures. No mass effect. No abnormal extra-axial fluid collection. Orbits, sinuses and calvarium nonacute. Cervical spine: Degenerative changes to the discs, endplates and facets chronic. No fracture, bony destruction or paraspinal hemorrhage. There is carotid atherosclerotic vascular calcifications. IMPRESSION: No hemorrhage, edema, fracture or acute abnormalities identified at CT evaluation head and cervical spine. CT ANGIOGRAM HEAD/NECK--PER RADIOLOGIST REPORT AT 2127 AND 2214 FINDINGS: HEAD: Anterior circulation: There are vascular calcifications of the cavernous portions of the ICAs with greater than 50% stenosis bilaterally. The anterior and middle cerebral arteries show no stenosis or intraluminal filling defects. No anterior circulation aneurysms are present. Posterior circulation: The artery and both posterior cerebral arteries are widely patent without stenosis. No posterior circulation aneurysms are present. Please see same day noncontrast CT head for discussion nonvascular findings. No suspicious enhancement. NECK: Arch: There are vascular calcifications of the aortic arch and subclavian vessels without significant stenosis.. Right: There is mild plaque within the distal common carotid artery extending into the internal and external carotid arteries. There is less than 20% stenosis of the proximal internal carotid artery. There is complete occlusion of the right vertebral artery to the basilar junction. Left: There is plaque within the distal common carotid artery extending into the internal and external carotid arteries. There is approximately 75% stenosis of the proximal internal carotid artery with minimal distal reconstitution of flow. The left vertebral artery is patent to the level of the vertebrobasilar junction. Other: The visualized thyroid gland is unremarkable. The cervical soft tissues are unremarkable. The visualized upper lungs and mediastinum are normal. The cervical osseous structures are normal. IMPRESSION: 1. Atherosclerosis with approximately 75% stenosis of the left internal carotid artery and 20% stenosis of the right internal carotid artery. 2. Greater than 50% stenosis of the cavernous portions of the bilateral ICAs. 3. 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 CT HEAD PERFUSION--PER RADIOLOGIST REPORT AT 2127 AND 2214 FINDINGS: Total CBF less than 30% volume: 0 mL. Total Tmax greater than 6 seconds volume: 0 mL. Total mismatch difference: 0 mL. Total mismatch ratio: None. Hypoperfusion index: Not applicable. Source images were also created and reviewed and show no large defect on the Tmax, cerebral blood flow, nor cerebral volume images. Comparison of the different sequences also demonstrates no appreciable mismatch. There is some motion artifact seen throughout the exam. IMPRESSION: 1. Normal CT head perfusion study. Reviewed: Reviewed by Me Departure Communication (Admissions) [facility] DO NOT HAVE BEDS 2138--CALLED [facility]. IMAGES CLOUDED TO THEM 2143--SPOKE WITH DR. NAVA, STROKE NEUROLOGIST. PT DOES NOT HAVE A LARGE VESSEL OCCLUSION OR ANYTHING THAT REQUIRES EMERGENT INTERVENTION. HE ADVISES ASPIRIN AND A STATIN AT THIS TIME. HE ADVISES PT'S SYMPTOMS ARE FOCAL AT THIS TIME, AND UNTIL METHAMPHETAMINE IS OUT OF HIS SYSTEM, AND GLUCOSE AND ELECTROLYTES ARE IN THE NORMAL RANGE, DOES NOT ADVISE STARTING SEIZURE MEDICATION AT THIS TIME. THEY WILL BE HAPPY TO FOLLOW UP WITH PATIENT AN OUTPATIENT. 2155--SPOKE WITH DR. GARCIA WITH [facility]. ACCEPTS PT FOR ADMIT 2210--CALLED DR. GARCIA BACK, PT JUST HAD A FULL BODY, GRAND MAL SEIZURE WITH INCONTINENCE, AND ATIVAN AND KEPPRA ORDERED. SHE ACCEPTS PT FOR ADMIT TO ICU, AND IF PT IS STILL HAVING SEIZURES IN THE MORNING, WILL ATTEMPT TO TRANSFER PT OUT IN THE MORNING 2214--REPORT TO DR. YBARRA, E-ICU PHYSICIAN. Impression Primary Impression: NEW DIAGNOSIS SEIZURES Additional Impressions: Newly diagnosed diabetes NEW DX HYPERTENSION Methamphetamine use Smoker Hyponatremia Disposition: ADMITTED INPATIENT Condition: Stable Admissions Decision to Admit Reason: Admit from ER (General) Decision to Admit/Date: May 11, 2023 Time/Decision to Admit Time: 22:00 Departure-Patient Inst. Referrals: [facility] [place] (PCP/Family) Primary Care Physician ROXANNE MALDONADO DO May 11, 2023 18:37
[2023-05-11 19:05] LABS: BASOPHILS # (AUTO) 0.1 10^3/uL (0.0-0.1); BASOPHILS % (AUTO) 1 % (0-10); EOSINOPHILS # (AUTO) 0.2 10^3/uL (0.0-0.3); EOSINOPHILS % (AUTO) 1 % (0-10); HEMATOCRIT 51 % (40-54); LYMPHOCYTES # (AUTO) 3.4 10^3/uL (1.0-4.0); LYMPHOCYTES % (AUTO) 25 % (12-44); MEAN CORPUSCULAR HEMOGLOBIN 30 pg (25-34); MEAN CORPUSCULAR HGB CONC 36 g/dL (32-36); MEAN CORPUSCULAR VOLUME 85 fL (80-99); MEAN PLATELET VOLUME 11.1 fL (9.0-12.2); MONOCYTES # (AUTO) 1.6 10^3/uL (0.0-1.0); MONOCYTES % (AUTO) 12 % (0-12); NEUTROPHILS # (AUTO) 8.5 10^3/uL (1.8-7.8); NEUTROPHILS % (AUTO) 61 % (42-75); PLATELET COUNT 206 10^3/uL (130-400); WHITE BLOOD COUNT 13.9 10^3/uL (4.3-11.0)
[2023-05-11 19:20] LABS: INR 0.9 (0.8-1.4); PROTHROMBIN TIME PATIENT 12.8 SEC (12.2-14.7)
[2023-05-11 19:27] LABS: ERYTHROCYTE SEDIMENTATION RATE 1 MM/HR (0-30)
[2023-05-11 19:33] LABS: ALANINE AMINOTRANSFERASE 19 U/L (0-55); ALKALINE PHOSPHATASE 137 U/L (40-136); BILIRUBIN,TOTAL 0.6 MG/DL (0.1-1.0); BUN/CREATININE RATIO 13; CALCIUM 9.3 MG/DL (8.5-10.1); CARBON DIOXIDE 21 MMOL/L (21-32); CHLORIDE 95 MMOL/L (98-107); CREATINE KINASE 64 U/L (30-200); CREATININE SERUM 1.08 MG/DL (0.60-1.30); GFR ESTIMATED 76; GLUCOSE 379 MG/DL (70-105); POTASSIUM 3.7 MMOL/L (3.6-5.0); SODIUM 130 MMOL/L (135-145); TOTAL PROTEIN 7.4 GM/DL (6.4-8.2)
--- NOTE | 2023-05-11 19:36 | Diagnostic Imaging Report ---
EXAMINATION: Chest 1 view HISTORY: WEAKNESS COMPARISON: None available. FINDINGS: Heart size and pulmonary vasculature are normal. The lungs are clear without consolidation, pleural effusion, or pneumothorax. Degenerative changes of the thoracic spine. Osseous structures are otherwise intact. IMPRESSION: 1. No acute radiographic abnormality in the chest. Dictated by: Dictated on workstation # [id number]
--- NOTE | 2023-05-11 19:36 | Diagnostic Imaging Report ---
PROCEDURE: CT head and CT cervical spine without contrast. TECHNIQUE: Multiple contiguous axial images were obtained through the brain and cervical spine without the use of intravenous contrast. Sagittal and coronal reformations through the cervical spine were then performed. Auto Exposure Controls were utilized during the CT exam to meet ALARA standards for radiation dose reduction. INDICATION: Spasms, head and neck pain. Injury. No priors FINDINGS: Head: There is a chronic small focus of encephalomalacia in the right temporal lobe at the anteroinferior middle cranial fossa. Cerebral cortical volume showing some mild generalized atrophy. No hemorrhage. No acute extra-axial fluid collection. No edema or evidence for elevated pressures. No mass effect. No abnormal extra-axial fluid collection. Orbits, sinuses and calvarium nonacute. Cervical spine: Degenerative changes to the discs, endplates and facets chronic. No fracture, bony destruction or paraspinal hemorrhage. There is carotid atherosclerotic vascular calcifications. IMPRESSION: No hemorrhage, edema, fracture or acute abnormalities identified at CT evaluation head and cervical spine. Dictated by: Dictated on workstation # [id number]
[2023-05-11 19:46] LABS: CREATINE KINASE MB 3.5 NG/ML (<6.6); TSH (THYROID ANALYZER) 1.38 UIU/ML (0.35-4.94)
[2023-05-11] MEDS ORDERED: IOHEXOL 350 MG/ML 150 ML (OMNIPAQUE 350) VIAL IV ONE (20:00)
[2023-05-11] MEDS ORDERED: HOLD METFORMIN - RECEIVED CONTRAST 20 ML VIAL IV SCH (20:00)
[2023-05-11] MEDS ORDERED: NS 100 ML (IVPB) BAG IV ONE (20:00)
[2023-05-11 20:10] LABS: BILIRUBIN,URINE NEGATIVE (NEGATIVE); CLARITY,URINE CLEAR; COLOR,URINE YELLOW; GLUCOSE, URINE (UA) 3+ (NEGATIVE); KETONES,URINE NEGATIVE (NEGATIVE); LEUKOCYTE ESTERASE ,URINE NEGATIVE (NEGATIVE); NITRITE,URINE NEGATIVE (NEGATIVE); PH,URINE 5.5 (5-9); PROTEIN,URINE NEGATIVE (NEGATIVE); RBC,URINE RARE /HPF
[2023-05-11 20:11] LABS: BACTERIA,URINE TRACE /HPF
[2023-05-11 20:14] LABS: AMPHETAMINE SCREEN, URINE POSITIVE (NEGATIVE); BARBITURATE SCREEN URINE NEGATIVE (NEGATIVE); CANNABINOID SCREEN, URINE NEGATIVE (NEGATIVE); COCAINE SCREEN URINE NEGATIVE (NEGATIVE); METHADONE STAT NEGATIVE (NEGATIVE); OPIATE SCREEN URINE NEGATIVE (NEGATIVE); OXYCODONE STAT NEGATIVE (NEGATIVE); TRICYCLIC ANTIDEPRESSANTS SCRE NEGATIVE (NEGATIVE)
--- NOTE | 2023-05-11 20:28 | Diagnostic Imaging Report ---
INDICATION: Left arm weakness. COMPARISON: Noncontrast CT head from earlier same day. TECHNIQUE: Post contrast CT head perfusion scan was performed. All CT scans use one or more of the following dose optimizing techniques: automated exposure control, MA and/or KvP adjustment based on patient size and exam type or iterative reconstruction. FINDINGS: Total CBF less than 30% volume: 0 mL. Total Tmax greater than 6 seconds volume: 0 mL. Total mismatch difference: 0 mL. Total mismatch ratio: None. Hypoperfusion index: Not applicable. Source images were also created and reviewed and show no large defect on the Tmax, cerebral blood flow, nor cerebral volume images. Comparison of the different sequences also demonstrates no appreciable mismatch. There is some motion artifact seen throughout the exam. IMPRESSION: 1. Normal CT head perfusion study. Dictated by: Dictated on workstation # [id number]
--- NOTE | 2023-05-11 21:05 | Diagnostic Imaging Report ---
EXAMINATION: CT angiography head and neck with and without contrast. TECHNIQUE: After intravenous administration of contrast, thin section axial CT angiography of the head and neck was performed to screen for LVO, and multiple reformats including MIP reconstructions. Postcontrast CT of the head was also obtained. All CT scans use one or more of the following dose optimizing techniques: automated exposure control, MA and/or KvP adjustment based on a patient size and exam type, or iterative reconstruction. CT angiogram was post-processed using RAPID LVO detection to include quantitative measurements of cerebral blood flow and automated results notification to the stroke and/or neurointerventional team. HISTORY: Left arm weakness. COMPARISON: None available. FINDINGS: HEAD: Anterior circulation: There are vascular calcifications of the cavernous portions of the ICAs with greater than 50% stenosis bilaterally. The anterior and middle cerebral arteries show no stenosis or intraluminal filling defects. No anterior circulation aneurysms are present. Posterior circulation: The artery and both posterior cerebral arteries are widely patent without stenosis. No posterior circulation aneurysms are present. Please see same day noncontrast CT head for discussion nonvascular findings. No suspicious enhancement. NECK: Arch: There are vascular calcifications of the aortic arch and subclavian vessels without significant stenosis.. Right: There is mild plaque within the distal common carotid artery extending into the internal and external carotid arteries. There is less than 20% stenosis of the proximal internal carotid artery. There is complete occlusion of the right vertebral artery to the basilar junction. Left: There is plaque within the distal common carotid artery extending into the internal and external carotid arteries. There is approximately 75% stenosis of the proximal internal carotid artery with minimal distal reconstitution of flow. The left vertebral artery is patent to the level of the vertebrobasilar junction. Other: The visualized thyroid gland is unremarkable. The cervical soft tissues are unremarkable. The visualized upper lungs and mediastinum are normal. The cervical osseous structures are normal. IMPRESSION: 1. Atherosclerosis with approximately 75% stenosis of the left internal carotid artery and 20% stenosis of the right internal carotid artery. 2. Greater than 50% stenosis of the cavernous portions of the bilateral ICAs. 3. 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 Dictated by: Dictated on workstation # [id number]
[2023-05-11] MEDS ORDERED: levETIRAcetam 1000 mg/NS 100ml 100 ML IV ONE (22:15)
[2023-05-11] MEDS ORDERED: ASPIRIN 81 MG CHEWABLE TABLET PO ONE (22:15)
[2023-05-11] MEDS ORDERED: LABETALOL 5 mg/ml 4 ML SINGLE DOSE SYRINGE IV ONE (22:30)
[2023-05-11] MEDS ORDERED: NS IV 500 ML 500 ML IV PRN (23:30)
[2023-05-11] MEDS ORDERED: LABETALOL 5 mg/ml 4 ML SINGLE DOSE SYRINGE IV PRN (23:45)
[2023-05-12] MEDS: NS IV 1000 ML 1,000 ML IV SCH ×4 (00:07→20:39)
[2023-05-12] MEDS ORDERED: inSUlin ASPART 1 UNIT/0.01 ML (PER UNIT) ONE (00:49)
[2023-05-12 00:55] VITALS: BP 154/97
[2023-05-12 00:58] VITALS: BP 154/97
--- NOTE | 2023-05-12 01:00 | Tele-ICU Progress Note ---
Progress Note 67M admitted with new-onset seizures. At this time, history is limited to chart review due to mental status. Will need to obtain more information once he is more alert. Initially presented on 03/07 with LUE spasm. Described as an intermittent tremor that feels muscular in nature. More likely to occur when lifting or using his arm. At that time, he was also found to have a glucose in the 600s, which improved to 300s with IVF and insulin. He was precribed baclofen for the muscle spasms and metformin for the glucose. He did not fill prescriptions or follow up with primary. Today he returns with worsening spasms of the LUE. Now precipitated by turning head to the left. Left hand swollen. Initially a stroke work up was initiated and was negative. Discussed with teleNeuro. Just after completing that evaluation, patient had generalized tonic clonic activity lasting about 2.5 minutes. +incontinence. +post-ictal state. He was given ativan and keppra. On admission to the ICU, he is arousable and can answer basic orientation questions before falling back asleep. He can follow commands and is without focal deficits. A/P: - seizure: seizure vs myoclonus vs muscle spasms. Will need to gather more info regarding this 2 month history. Unable to order EEG at this facility. If ongoing seizures, may need to consider transfer in AM. There were no beds available tonight. Continue Keppra. Treat metabolic disturbances, including severe hyperglycemia. Noted to have positive tox for meth. Will need to gather more history to determine whether this is a contributing factor. May also need imaging of the cervical spine or brachial plexus, depending on details of recent history. - hyperglycemia: glucose 379 at 1850. Has not received any treatment. Will start medium dose sliding scale q6h, starting now. Titrate as needed. No evidence of DKA. A1C pending. Patient assessed via real time audiovisual communication system. CCT 33 min Focused Exam Height, Weight, BMI Height: 5'9.00" Weight: 230lbs. 6.0oz. [id number]; 29.74 BMI Method:Actual ALYCIA YBARRA MD May 12, 2023 01:00
[2023-05-12 01:05] LABS: ABG BASE EXCESS 1.7 MMOL/L (-2.5-2.5); ABG OXYGEN SATURATION 100 % (94-100); ABG PCO2 38 MMHG (35-45); ABG PH 7.44 (7.37-7.43); ABG PO2 127 MMHG (79-93)
[2023-05-12 01:06] LABS: INSPIRED O2 3L; VENTILATOR NO
[2023-05-12] MEDS ORDERED: RT-ALBUTEROL SULF 2.5 MG/3 ML PRE-MIX VIAL INH PRN (01:15)
[2023-05-12] MEDS: inSUlin ASPART 1 UNIT/0.01 ML (PER UNIT) SC SCH ×6 (01:52→20:24)
[2023-05-12 05:18] LABS: BASOPHILS # (AUTO) 0.1 10^3/uL (0.0-0.1); BASOPHILS % (AUTO) 1 % (0-10); EOSINOPHILS # (AUTO) 0.3 10^3/uL (0.0-0.3); EOSINOPHILS % (AUTO) 2 % (0-10); HEMATOCRIT 46 % (40-54); HEMOGLOBIN 16.3 g/dL (13.3-17.7); LYMPHOCYTES # (AUTO) 4.2 10^3/uL (1.0-4.0); LYMPHOCYTES % (AUTO) 33 % (12-44); MEAN CORPUSCULAR HEMOGLOBIN 30 pg (25-34); MEAN CORPUSCULAR HGB CONC 35 g/dL (32-36); MEAN CORPUSCULAR VOLUME 86 fL (80-99); MONOCYTES # (AUTO) 1.5 10^3/uL (0.0-1.0); MONOCYTES % (AUTO) 11 % (0-12); NEUTROPHILS # (AUTO) 6.7 10^3/uL (1.8-7.8); NEUTROPHILS % (AUTO) 52 % (42-75); PLATELET COUNT 178 10^3/uL (130-400); WHITE BLOOD COUNT 12.9 10^3/uL (4.3-11.0)
[2023-05-12 05:33] LABS: ALBUMIN 3.3 GM/DL (3.2-4.5)
[2023-05-12 05:34] LABS: POTASSIUM 3.4 MMOL/L (3.6-5.0)
[2023-05-12 05:35] LABS: CALCIUM 8.5 MG/DL (8.5-10.1)
[2023-05-12 05:36] LABS: TOTAL PROTEIN 6.1 GM/DL (6.4-8.2)
[2023-05-12 05:38] LABS: BILIRUBIN,TOTAL 0.6 MG/DL (0.1-1.0)
[2023-05-12] MEDS: POTASSIUM CL 10MEQ/50ML IVPB 50 ML IV SCH ×5 (05:38→09:19)
[2023-05-12] MEDS: POTASSIUM CHLORIDE 20 MEQ TABLET PO SCH (05:38)
[2023-05-12 05:39] LABS: PHOSPHORUS 3.1 MG/DL (2.3-4.7)
[2023-05-12 05:40] LABS: CREATININE SERUM 0.84 MG/DL (0.60-1.30)
[2023-05-12 05:43] LABS: MAGNESIUM 2.1 MG/DL (1.6-2.4)
[2023-05-12] MEDS: MAGNESIUM 1 GM/100 ML IVPB 100 ML IV SCH (05:50)
[2023-05-12] MEDS ORDERED: inSUlin ASPART 1 UNIT/0.01 ML (PER UNIT) SC SCH (06:00)
[2023-05-12 06:34] VITALS: BP 132/61
[2023-05-12] MEDS ORDERED: ASPIRIN enteric coated 81MG TABLET PO SCH (09:00)
[2023-05-12] MEDS: levETIRAcetam 1000 mg/NS 100ml IVPB IV SCH ×2 (09:19→20:21)
[2023-05-12] MEDS: NICOTINE 21 MG PATCH TD SCH (11:37)
[2023-05-12] MEDS ORDERED: LIDOCAINE UROJET 2% GEL 10 ML PKG ONE (11:58)
[2023-05-12] MEDS ORDERED: LIDOCAINE UROJET 2% GEL 10 ML PKG TOP NR (12:00)
[2023-05-12] MEDS ORDERED: inSUlin ASPART 1 UNIT/0.01 ML (PER UNIT) SC NR (12:00)
[2023-05-12] MEDS ORDERED: [UNRECOGNIZED DRUG - OTHER] IV ONE (12:45)
--- NOTE | 2023-05-12 13:04 | History & Physical ---
BRIELLE ELLIS MD, RESIDENT 05/12/23 1304: HPI History of Present Illness: CC: Seizures Patient is a 67-year-old male with a past medical history of hypertension, diabetes who presented with muscle spasms concerning for seizures. He states that this has been ongoing for the last 2 months. Notes that he will have left upper extremity muscle spasms when he turns his head to the left or raises his left arm. He denies any other associated symptoms work-up in the ED was negative however as patient was being observed, he had a 2-1/2-minute grand mal seizure, was postictal. Patient was given a dose of Ativan and Keppra and was ultimately transferred to the ICU for further management. In the ED, work-up was notable for methamphetamine in patient's urine. Chest x-ray and head CT was otherwise negative. 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 [facility] neurology was consulted in the ED who recommended observation as seizure could have been secondary to meth and they would not be able to parse this out until patient methamphetamine is out of his system. Patient does note that he is a smoker and does use meth. Last used yesterday. He denies any alcohol use. On evaluation this morning, patient was stable, did not have any further seizures while monitored in the ICU. He otherwise had no concerns this morning Source: patient Exam Limitations: no limitations Date seen by provider: May 12, 2023 Time Seen by Provider: 07:30 Attending Physician [facility] PCP Admitting Physician: Mario Garcia MD Attending Physician: Mario Garcia MD Consult Date of Admission May 11, 2023 at 22:42 Home Medications Home Medications Reviewed patient Home Medication Reconciliation performed by pharmacy medication reconciliations computer field technician and/or nursing. Patients Allergies have been reviewed. Allergies Coded Allergies: Penicillins (Unverified Allergy, Mild, 03/18/08) [id number] Hx Patient Social History Smoking Status: Current Everyday Smoker Alcohol Use?: Yes Substance type: Amphetamines, Methamphetamine Tobacco type used: Cigarettes Immunizations Up To Date Tetanus Booster (TDap): Unknown Influenza Vaccine Up-to-Date: No; Not Current Family Medical History Significant Family History: No Pertinent Family Hx Other Significan Family Hx: SOCIAL HISTORY: -SMOKES 1 PPD -ETOH--"OCCASIONAL USE" -DRUGS UDS + FOR AMPHETAMINES / METHAMPHETAMINES ON 05/11/23--PT STATES HE SMOKES IT. DENIES IV USE. Family History: Abdominal aortic aneurysm 19 FATHER Alzheimer's disease 19 MOTHER Cardiovascular disease PATERNAL GRANDFATHER Myocardial infarction PATERNAL GRANDFATHER Review of Systems ([facility]) Constitutional: No fever, No weakness EENTM: No nose congestion Respiratory: No cough, No short of breath, No wheezing Cardiovascular: No chest pain, No edema, No palpitations Gastrointestinal: No abdominal pain, No constipation, No diarrhea, No nausea, No vomiting Genitourinary: No dysuria Musculoskeletal: No no symptoms reported Skin: No no symptoms reported Psychiatric/Neurological: Seizure Reviewed Test Results Reviewed Test Results Lab Laboratory Tests 05/11/23 18:50: White Blood Count 13.9H, Red Blood Count 5.92H, Hemoglobin 18.0H, Hematocrit 51, Mean Corpuscular Volume 85, Mean Corpuscular Hemoglobin 30, Mean Corpuscular Hemoglobin Concent 36, Red Cell Distribution Width 12.4, Platelet Count 206, Mean Platelet Volume 11.1, Immature Granulocyte % (Auto) 1, Neutrophils (%) (Auto) 61, Lymphocytes (%) (Auto) 25, Monocytes (%) (Auto) 12, Eosinophils (%) (Auto) 1, Basophils (%) (Auto) 1, Neutrophils # (Auto) 8.5H, Lymphocytes # (Auto) 3.4, Monocytes # (Auto) 1.6H, Eosinophils # (Auto) 0.2, Basophils # (Auto) 0.1, Immature Granulocyte # (Auto) 0.1, Erythrocyte Sedimentation Rate 1, Prothrombin Time 12.8, INR Comment 0.9, Activated Partial Thromboplast Time 28, Sodium Level 130L, Potassium Level 3.7, Chloride Level 95L, Carbon Dioxide Level 21, Anion Gap 14, Blood Urea Nitrogen 14, Creatinine 1.08, Estimat Glomerular Filtration Rate 76, BUN/Creatinine Ratio 13, Glucose Level 379H, Mean Blood Glucose [Pending], Hemoglobin A1c [Pending], Calcium Level 9.3, Corrected Calci um 9.3, Magnesium Level 2.0, Total Bilirubin 0.6, Aspartate Amino Transf (AST/SGOT) 14, Alanine Aminotransferase (ALT/SGPT) 19, Alkaline Phosphatase 137H , Total Creatine Kinase 64, Creatine Kinase MB 3.5, Myoglobin 37.5, C-Reactive Protein High Sensitivity 0.35, Total Protein 7.4, Albumin 4.0, Beta- Hydroxybutyrate (Chem panel) 0.15, TSH [facility] Testing 1.38, Serum Alcohol < 10 05/11/23 19:58: Urine Color YELLOW, Urine Clarity CLEAR, Urine pH 5.5, Urine Specific [place] 1.010L, Urine Protein NEGATIVE, Urine Glucose (UA) 3+H, Urine Ketones NEGATIVE, Urine Nitrite NEGATIVE, Urine Bilirubin NEGATIVE, Urine Urobilinogen 0.2, Urine Leukocyte Esterase NEGATIVE, Urine RBC (Auto) TRACEH, Urine RBC RARE, Urine WBC NONE, Urine Squamous Epithelial Cells 2-5, Urine Crystals NONE, Urine Bacteria TRACE, Urine Casts NONE, Urine Mucus NEGATIVE, Urine Culture Indicated NO, Urine Opiates Screen NEGATIVE, Urine Oxycodone Screen NEGATIVE, Urine Methadone Screen NEGATIVE, Urine Barbiturates Screen NEGATIVE, Ur Tricyclic Antidepressants Screen NEGATIVE, Urine Phencyclidine Screen NEGATIVE, Urine Amphetamines Screen POSITIVEH, Urine Methamphetamines Screen POSITIVEH, Urine Benzodiazepines Screen NEGATIVE, Urine Cocaine Screen NEGATIVE, Urine Cannabinoids Screen NEGATIVE 05/12/23 00:46: Glucometer 305H 05/12/23 00:55: Arterial Blood pH 7.44H, Arterial Blood Partial Pressure CO2 38, Arterial Blood Partial Pressure O2 127H, Arterial Blood HCO3 26, Arterial Blood Total CO2 27.0, Arterial Blood Oxygen Saturation 100, Arterial Blood Base Excess 1.7, Blood Gas Ventilator Setting NO, Blood Gas Inspired Oxygen 3L 05/12/23 01:47: Glucometer 318H 05/12/23 05:00: White Blood Count 12.9H, Red Blood Count 5.42, Hemoglobin 16.3, Hematocrit 46, Mean Corpuscular Volume 86, Mean Corpuscular Hemoglobin 30, Mean Corpuscular Hemoglobin Concent 35, Red Cell Distribution Width 12.6, Platelet Count 178, Mean Platelet Volume 11.0, Immature Granulocyte % (Auto) 1, Neutrophils (%) (Auto) 52, Lymphocytes (%) (Auto) 33, Monocytes (%) (Auto) 11, Eosinophils (%) (Auto) 2, Basophils (%) (Auto) 1, Neutrophils # (Auto) 6.7, Lymphocytes # (Auto) 4.2H, Monocytes # (Auto) 1.5H, Eosinophils # (Auto) 0.3, Basophils # (Auto) 0.1, Immature Granulocyte # (Auto) 0.1, Sodium Level 136, Potassium Level 3.4L, Chloride Level 104, Carbon Dioxide Level 22, Anion Gap 10, Blood Urea Nitrogen 12, Creatinine 0.84, Estimat Glomerular Filtration Rate 96, BUN/Creatinine Ratio 14, Glucose Level 195H, Calcium Level 8.5, Corrected Calcium 9.1, Phosphorus Le agnes 3.1, Magnesium Level 2.1, Total Bilirubin 0.6, Aspartate Amino Transf (AST/SGOT) 13, Alanine Aminotransferase (ALT/SGPT) 15, Alkaline Phosphatase 105, Total Protein 6.1L, Albumin 3.3 05/12/23 11:43: Glucometer 416*H Radiology Chest x-ray (05/11/2023): IMPRESSION: 1. No acute radiographic abnormality in the chest. Ct head/neck (05/11/2023): IMPRESSION: No hemorrhage, edema, fracture or acute abnormalities identified at CT evaluation head and cervical spine. CTA head (05/11/2023): IMPRESSION: 1. Atherosclerosis with approximately 75% stenosis of the left internal carotid artery and 20% stenosis of the right internal carotid artery. 2. Greater than 50% stenosis of the cavernous portions of the bilateral ICAs. 3. 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 Physical Exam-([facility]) Physical Exam Vital Signs VS - Last 72 Hours, by Label 05/11/23 05/11/23 05/11/23 05/11/23 18:22 22:47 22:50 22:55 Temp 36.8 Pulse 105 78 80 Resp 18 16 B/P (MAP) 180/96 (124) 132/86 Pulse Ox 99 O2 Delivery Room Air Nasal Cannula Nasal Cannula O2 Flow Rate 2.00 2.00 05/11/23 05/12/23 05/12/23 05/12/23 23:00 00:00 00:04 00:30 Temp 36.1 36.4 Pulse 78 89 Resp 22 B/P (MAP) 135/78 (97) 144/86 (105) Pulse Ox 98 98 O2 Delivery Nasal Cannula Nasal Cannula Nasal Cannula O2 Flow Rate 2.00 3.00 3.00 05/12/23 05/12/23 05/12/23 05/12/23 00:55 00:58 01:00 01:00 Pulse 86 86 90 92 Resp 21 B/P (MAP) 135/79 (97) Pulse Ox 98 98 98 O2 Delivery NIV CPAP O2 Flow Rate 30.00 30.00 FiO2 30 05/12/23 05/12/23 05/12/23 05/12/23 01:19 02:00 03:00 03:49 Temp 36.3 36.3 Pulse 76 75 B/P (MAP) 147/68 (94) 142/67 (92) Pulse Ox 97 98 O2 Delivery NIV CPAP NIV CPAP O2 Flow Rate 30.00 30.00 05/12/23 05/12/23 05/12/23 05/12/23 04:00 04:22 05:00 05:32 Temp 36.2 Pulse 73 76 B/P (MAP) 129/51 (77) 151/82 (105) Pulse Ox 100 97 O2 Delivery NIV CPAP NIV CPAP NIV CPAP O2 Flow Rate 30.00 30.00 FiO2 30 05/12/23 05/12/23 05/12/23 05/12/23 06:00 06:27 06:33 06:34 Pulse 72 75 Resp 14 B/P (MAP) 139/89 (106) Pulse Ox 96 93 99 O2 Delivery Room Air Room Air NIV CPAP O2 Flow Rate 0.00 30.00 30.00 05/12/23 05/12/23 05/12/23 05/12/23 07:00 07:00 08:00 08:00 Temp 35.9 Pulse 75 74 75 Resp 26 25 B/P (MAP) 161/82 (117) 140/71 (97) Pulse Ox 98 99 O2 Delivery NIV CPAP NIV CPAP O2 Flow Rate 30.00 30.00 05/12/23 05/12/23 05/12/23 05/12/23 08:00 09:00 10:00 11:00 Pulse 76 79 80 Resp 15 18 17 B/P (MAP) 139/65 (92) 147/77 (114) 167/79 (99) Pulse Ox 98 99 92 O2 Delivery NIV CPAP NIV CPAP NIV CPAP NIV CPAP O2 Flow Rate 30.00 30.00 30.00 FiO2 30 05/12/23 05/12/23 05/12/23 05/12/23 11:00 11:37 12:00 12:31 Temp 36.0 Pulse 88 82 Resp 23 B/P (MAP) 132/82 (99) Pulse Ox 97 98 O2 Delivery Room Air NIV CPAP O2 Flow Rate 0.00 30.00 Capillary Refill : Less Than 3 Seconds General Appearance: no apparent distress HEENT: PERRL/EOMI, normal ENT inspection Neck: non-tender, full range of motion, other Respiratory: chest non-tender, lungs clear, normal breath sounds, no respiratory distress, no accessory muscle use Cardiovascular: regular rate, rhythm, no edema, no murmur Gastrointestinal: normal bowel sounds, non tender, soft Extremities: normal range of motion Neurologic/Psychiatric: household chores II-XII nml as tested, alert, oriented x 3, other (No muscle spasms noted with patient turning his head to the left and raising his left arm) Skin: normal color, warm/dry Assessment/Plan Assessment/Plan Admission Status: Inpatient Order (span 2 midnights) Reason for Inpatient Admission: Seizures (1) Seizure Status: Acute Assessment & Plan: Patient admitted for seizure that occurred while being observed in the ED yesterday. Resolved with IV Ativan and Keppra. Patient has not had any further seizures overnight. We did call [facility] this morning to transfer for neurology needs and possible EEG however they declined as it may be secondary to methamphetamine use and does not require urgent EEG. Will have patient follow-up with them in the outpatient. Plan: Continue to observe for 24 hours after last seizure IV Ativan and Keppra on board as needed Follow-up brain MRI ordered by eICU We will have patient set up with neurology in the outpatient for further work- up (2) Muscle spasm Status: Acute Assessment & Plan: Not reproducible on exam today. Plan as per above (3) Methamphetamine use Status: Acute Assessment & Plan: Monitor for withdrawal. (4) Diabetes Status: Chronic Assessment & Plan: Sliding scale insulin on board Qualifiers: (5) Smoker Status: Chronic Assessment & Plan: Added nicotine patch as patient was having tobacco cravings this morning (6) Sleep apnea Status: Chronic Assessment & Plan: Continue CPAP at night MARIO GARCIA MD 05/12/23 2276: Home Medications Allergies Coded Allergies: Penicillins (Unverified Allergy, Mild, 03/18/08) [id number] Hx Family Medical History Family History: Abdominal aortic aneurysm 19 FATHER Alzheimer's disease 19 MOTHER Cardiovascular disease PATERNAL GRANDFATHER Myocardial infarction PATERNAL GRANDFATHER Supervisory-Addendum Brief Supervisory Addendum I personally performed the mejía portions of the visit, discussed case with resident and concur with resident documentation of history, physical exam, assessment and treatment plan unless otherwise noted. BRIELLE ELLIS MD, RESIDENT May 12, 2023 13:04 MARIO GARCIA MD May 12, 2023 17:06
--- NOTE | 2023-05-12 15:43 | Diagnostic Imaging Report ---
PROCEDURE: MR imaging of the brain with and without contrast. TECHNIQUE: Multiplanar, multisequence MR imaging of the brain was performed with and without contrast. DATE: May 12, 2023. COMPARISON: CT angiography of head and neck May 11, 2023. CT head without contrast May 11, 2023. HISTORY: 67-year-old male, seizures. FINDINGS: There is diffusion restriction involving the right frontal parietal lobe cortex. There is no additional area of diffusion obstruction. There are no areas of abnormal intracranial susceptibility. The ventricles and CSF spaces are normal in size and configuration for patient age. There is no abnormal extra axial fluid collection. There is no acute intracranial hemorrhage. There is no mass effect or midline shift. There are multiple foci of T2 and FLAIR hyperintense signal in the periventricular and subcortical white matter which are nonspecific but most likely reflect moderate findings of chronic small vessel ischemic disease. There is a small area of encephalomalacia in the right anterior temporal lobe with adjacent FLAIR hyperintense signal likely reflecting gliosis relating to prior insult. There is curvilinear enhancement in the right frontoparietal cortex at site of diffusion restriction. There is no additional area of contrast enhancement. The visualized portions of the paranasal sinuses, mastoid air cells and middle ears are well aerated. There is preservation of major intracranial flow voids. IMPRESSION: 1. Diffusion restriction and curvilinear enhancement in the right frontal parietal lobe cortex which may relate to a subacute infarct. 2. Focal area of encephalomalacia in the right anterior temporal lobe with adjacent gliosis. 3. Moderate findings of chronic small vessel ischemic disease. Dictated by: Dictated on workstation # [id number]
[2023-05-12] MEDS: metFORMIN 850 MG TABLET PO SCH (17:17)
[2023-05-13] MEDS: NS IV 1000 ML 1,000 ML IV SCH (01:13)
[2023-05-13 04:07] LABS: BASOPHILS # (AUTO) 0.1 10^3/uL (0.0-0.1); BASOPHILS % (AUTO) 1 % (0-10); EOSINOPHILS # (AUTO) 0.3 10^3/uL (0.0-0.3); EOSINOPHILS % (AUTO) 2 % (0-10); HEMATOCRIT 45 % (40-54); HEMOGLOBIN 15.4 g/dL (13.3-17.7); LYMPHOCYTES # (AUTO) 3.8 10^3/uL (1.0-4.0); LYMPHOCYTES % (AUTO) 26 % (12-44); MEAN CORPUSCULAR HEMOGLOBIN 30 pg (25-34); MEAN CORPUSCULAR HGB CONC 34 g/dL (32-36); MEAN CORPUSCULAR VOLUME 88 fL (80-99); MEAN PLATELET VOLUME 11.4 fL (9.0-12.2); MONOCYTES # (AUTO) 1.7 10^3/uL (0.0-1.0); MONOCYTES % (AUTO) 12 % (0-12); NEUTROPHILS # (AUTO) 8.8 10^3/uL (1.8-7.8); NEUTROPHILS % (AUTO) 60 % (42-75); PLATELET COUNT 182 10^3/uL (130-400); WHITE BLOOD COUNT 14.8 10^3/uL (4.3-11.0)
[2023-05-13 04:18] LABS: ALBUMIN 2.9 GM/DL (3.2-4.5)
[2023-05-13 04:19] LABS: CALCIUM 7.8 MG/DL (8.5-10.1)
[2023-05-13 04:20] LABS: TOTAL PROTEIN 5.3 GM/DL (6.4-8.2)
[2023-05-13 04:22] LABS: BILIRUBIN,TOTAL 0.7 MG/DL (0.1-1.0)
[2023-05-13 04:24] LABS: CREATININE SERUM 0.71 MG/DL (0.60-1.30); PHOSPHORUS 2.8 MG/DL (2.3-4.7)
[2023-05-13 04:26] LABS: EOSINOPHILS % (MANUAL) 4 %; LYMPHOCYTES % (MANUAL) 29 %; MONOCYTES % (MANUAL) 6 %; NEUTROPHILS % (MANUAL) 61 %; RBC MORPH NORMAL
[2023-05-13 04:27] LABS: MAGNESIUM 1.8 MG/DL (1.6-2.4)
[2023-05-13] MEDS: inSUlin ASPART 1 UNIT/0.01 ML (PER UNIT) SC SCH ×4 (05:16→21:06)
[2023-05-13] MEDS: MAGNESIUM 1 GM/100 ML IVPB 100 ML IV SCH ×3 (05:17→06:45)
[2023-05-13] MEDS: POTASSIUM CHLORIDE 20 MEQ TABLET PO SCH (05:17)
[2023-05-13] MEDS: POTASSIUM CL 10MEQ/50ML IVPB 50 ML IV SCH (05:17)
[2023-05-13] MEDS: metFORMIN 850 MG TABLET PO SCH (07:40)
--- NOTE | 2023-05-13 09:12 | Tele-ICU Progress Note ---
Progress Note video rounds completed 67 y/o male admitted thru the ED for possible seizures vs myoclonic muscular activity which has been going on for a bout [address] and MRI brain: MPRESSION: 1. Diffusion restriction and curvilinear enhancement in the right frontal parietal lobe cortex which may relate to a subacute infarct. 2. Focal area of encephalomalacia in the right anterior temporal lobe with adjacent gliosis. 3. Moderate findings of chronic small vessel ischemic disease. No further seizure like activity noted. PE: resting comfortably HR: 101 BP: 117/64 Pulse OX: 96% IMP: PVD with cerebral atheroclerosis. PLAN: may need neurology or neurovascular consultation Time spent in review: 20 minutes Focused Exam Height, Weight, BMI Height: 5'9.00" Weight: 230lbs. 6.0oz. [id number]; 30.13 BMI Method:Actual Labs Laboratory Tests 05/13/23 03:43 Results Results/Procedures Labs Laboratory Tests 05/11/23 18:50 05/12/23 05:00 05/13/23 03:43 Patient resulted labs reviewed. Results Labs Labs Laboratory Tests 05/12/23 11:43: Glucometer 416*H 05/12/23 16:25: Glucometer 251H 05/12/23 20:22: Glucometer 169H 05/13/23 03:43: White Blood Count 14.8H, Red Blood Count 5.13, Hemoglobin 15.4, Hematocrit 45, Mean Corpuscular Volume 88, Mean Corpuscular Hemoglobin 30, Mean Corpuscular Hemoglobin Concent 34, Red Cell Distribution Width 13.0, Platelet Count 182, Mean Platelet Volume 11.4, Immature Granulocyte % (Auto) 1, Neutrophils (%) (Auto) 60, Lymphocytes (%) (Auto) 26, Monocytes (%) (Auto) 12, Eosinophils (%) (Auto) 2, Basophils (%) (Auto) 1, Neutrophils # (Auto) 8.8H, Lymphocytes # (Auto) 3.8, Monocytes # (Auto) 1.7H, Eosinophils # (Auto) 0.3, Basophils # (Auto) 0.1, Immature Granulocyte # (Auto) 0.1, Neutrophils % (Manual) 61, Lymphocytes % (Manual) 29, Monocytes % (Manual) 6, Eosinophils % (Manual) 4, Blood Morphology Comment NORMAL, Sodium Level 135, Potassium Level 4.0, Chloride Level 107, Carbon Dioxide Level 21, Anion Gap 7, Blood Urea Nitrogen 7, Creatinine 0.71, Estimat Glomerular Filtration Rate 101, BUN/Creatinine Ratio 10, Glucose Level 176H, Calcium Level 7.8L, Corrected Calcium 8.7, Phosphorus Level 2.8, Magnesium Level 1.8, Total Bilirubin 0.7, Aspartate Amino Transf (AST/SGOT) 15, Alanine Aminotransferase (ALT/SGPT) 14, Alkaline Phosphatase 83, Total Protein 5.3L, Albumin 2.9L Microbiology 05/11/23 MRSA Screen - Final, Complete MRSA not isolated 05/11/23 Blood Culture - Preliminary, Resulted RAJ LOPEZ MD May 13, 2023 09:12
[2023-05-13 09:18] LABS: TRIGLYCERIDES 60 MG/DL (<150); VLDL CHOLESTEROL 12 MG/DL (5-40)
[2023-05-13 09:23] LABS: CHOLESTEROL 126 MG/DL (< 200)
[2023-05-13 09:24] LABS: HDL CHOLESTEROL 38 MG/DL (40-60)
[2023-05-13] MEDS: CLOPIDOGREL 75 MG TABLET PO SCH (09:53)
[2023-05-13] MEDS: NICOTINE 21 MG PATCH TD SCH (09:53)
[2023-05-13] MEDS: ASPIRIN 81 MG CHEWABLE TABLET PO SCH (09:53)
[2023-05-13] MEDS: NICOTINE PATCH REMOVAL TP SCH (09:53)
[2023-05-13] MEDS: levETIRAcetam 1000 mg/NS 100ml IVPB IV SCH ×2 (09:53→21:06)
--- NOTE | 2023-05-13 11:14 | Physical Therapy Evaluation ---
PT Evaluation-General Medical Diagnosis Admission Date May 11, 2023 at 22:42 Medical Diagnosis: seizure Onset Date: May 11, 2023 Therapy Diagnosis Therapy Diagnosis: decreased mobility Height/Weight Height (Feet): 5 Height (Inches): 9.00 Weight (Pounds): 230 Weight (Ounces): 6.0 Precautions Precautions/Isolations: Fall Prevention, Standard Precautions Weight Bear Status Right Lower Extremity: Right Full Weight Bearing Left Lower Extremity: Left Full Weight Bearing Referral Physician: Dr. Lucero Reason for Referral: Evaluation/Treatment Medical History Pertinent Medical History: DM, HTN Additional Medical History tobacco use, meth use Current History Presented with muscle spasm/seizures. Reviewed History: Yes Social History Home: Multilevel Current Living Status: Alone Entry Into Home: Stairs With Railing PT Steps Into Home: 5 Prior Prior Level of Function SCALE: Activities may be completed with or without assistive devices. 3-Yxgvkyvmkt-svytter completes the activity by him/herself with no assistance from a helper. 5-Set-up or Clean-up Assistance-helper sets up or cleans up; patient completes activity. [place] assists only prior to or following the activity. 4-Supervision or Touching Assistance-helper provides verbal cues and/or touching/steadying and/or contact guard assistance as patient completes activity. Assistance may be provided throughout the activity or intermittently. 3-Partial/Moderate Assistance-helper does LESS THAN HALF the effort. [place] lifts, holds or supports trunk or limbs, but provides less than half the effort. 2-Substantial/Maximal Assistance-helper does MORE THAN HALF the effort. [place] lifts or holds trunk or limbs and provides more than half the effort. 1-Udkmtokvv-mgogno does ALL the effort. Patient does none of the effort to complete the activity. Or, the assistance of 2 or more helpers is required for the patient to complete the activity. If activity was not attempted, code reason: 7-Patient Refused. 9-Not Applicable-not attempted and the patient did not perform the activity before the current illness, exacerbation or injury. 10-Not Attempted due to Environmental Limitations-(lack of equipment, weather restraints, etc.). 88-Not Attempted due to Medical Conditions or Safety Concerns. Bed Mobility: 6 Transfers (B,C,W/C): 6 Gait: 6 Stairs: 6 Indoor Mobility (Ambulation): Independent Stairs: Independent Prior Device Use: cane PT Evaluation-Current Subjective Pt. in bed, agrees to PT. He reports low back and L elbow pain but does not give objective pain rating. Pt/Family Goals home Objective Patient Orientation: Person, Place, Time, Situation Attachments: Oxygen, Gray Catheter, IV ROM/Strength ROM Upper Extremities WFL ROM Lower Extremities WFL Strength Upper Extremities WFL Strength Lower Extremities Grossly 4+/5 Integumentary/Posture Integumentary see nursing notes Bowel Incontinence: No Bladder Incontinence: Gray Cath Posture unremarkable Neuromuscular (Tone, Coordination, Reflexes) unremarkable Sensory Vision: Functional Hearing: Functional Sensation Right Upper Extremit: Intact Sensation Left Upper Extremity: Intact Sensation Right Lower Extremit: Intact Sensation Left Lower Extremity: Intact Transfers Roll Left to Right (QC): 6 Lying to Sitting/Side of Bed(Q: 6 Sit to Stand (QC): 4 Chair/Mvs-gi-Yxsrl Xfer(QC): 4 Gait Does the Patient Walk?: No and Walking Goal IS indicated Mode of Locomotion: Walk Anticipated Mode of Locomotion: Walk Gait Assistive Device: FWW Balance Sitting Static: Good Sitting Dynamic: Good Standing Static: Good Standing Dynamic: Fair Assessment/Needs Pt. is a 67 y.o. male with decreased mobility following seizures. Pt. is currently CGA with out of bed activity, (I) with bed mobility. Pt. would benefit from short-term PT to restore safe mobility for return home. Rehab Potential: Good PT Intermediate Goals Dairy Technician Goals PT Intermediate Goals Time Frame: May 20, 2023 Roll Left & Right (QC): 6 Sit to Lying (QC): 6 Lying-Sitting on Side/Bed(QC): 6 Sit to Stand (QC): 6 Chair/Fkh-lh-Xjqju Xfer(QC): 6 Toilet Transfer (QC): 6 Does the Patient Walk: Yes Walk 10 feet (QC): 6 Walk 50ft with 2 Turns (QC): 6 Walk 150 ft (QC): 6 4 Steps (QC): 4 PT Plan Problem List Problem List: Activity Tolerance, Functional Strength, Safety, Balance, Gait, Transfer, Bed Mobility, ROM Treatment/Plan Treatment Plan: Continue Plan of Care Treatment Plan: Bed Mobility, Concurrent Therapy, Education, Functional Activity Brenda, Functional Strength, Gait, Safety, Therapeutic Exercise, Transfers Treatment Duration: May 20, 2023 Frequency: 5 times per week Estimated Hrs Per Day: .25 hour per day Patient and/or Family Agrees t: Yes Time Time In: 1005 Time Out: 1022 DATE: May 13, 2023 Total Billed Treatment Time: 17 Total Billed Treatment 1, VALORIE 17' DONNA BARR PT May 13, 2023 11:14
--- NOTE | 2023-05-13 11:55 | Progress Note ---
BRIELLE ELLIS MD, RESIDENT 05/13/23 1155: Subjective Subjective/Events-last exam Patient doing well this morning. Has not had another seizure since admission. He is feeling quite hungry and would like to move around a little bit more. He otherwise denies any acute concerns today. Review of Systems General: No Fatigue Pulmonary: No Dyspnea, No Cough Cardiovascular: No: Chest Pain, Palpitations, Edema Gastrointestinal: No: Nausea, Vomiting, Diarrhea, Constipation Genitourinary: No Dysuria Objective Exam Last Set of Vital Signs Vital Signs Date Time Temp Pulse Resp B/P (MAP) Pulse Ox O2 Delivery O2 Flow Rate FiO2 05/13/23 11:00 91 17 163/81 (108) 97 Room Air 05/13/23 07:00 30.00 05/12/23 19:58 36.5 05/12/23 08:00 30 Capillary Refill : Less Than 3 Seconds I&O Intake and Output 05/13/23 00:00 Intake Total 3500 ml Output Total 1800 ml Balance 1700 ml Intake Oral 2100 ml IV Total 1400 ml Output Urine Total 1800 ml # Voids 1 General: Alert, Oriented X3 HEENT: Atraumatic Neck: Supple Lungs: Clear to Auscultation, Normal Air Movement Heart: Regular Rate, No Murmurs Abdomen: Normal Bowel Sounds, Soft, No Tenderness Extremities: No Edema Neuro: Normal Speech, Other (Unable to make a fist with the left hand. Able to lift the left arm but is unable to hold it up for too long. No other neurological deficits noted) Psych/Mental Status: Mental Status NL Results/Procedures Lab Laboratory Tests 05/12/23 16:25: Glucometer 251H 05/12/23 20:22: Glucometer 169H 05/13/23 03:43: White Blood Count 14.8H, Red Blood Count 5.13, Hemoglobin 15.4, Hematocrit 45, Mean Corpuscular Volume 88, Mean Corpuscular Hemoglobin 30, Mean Corpuscular Hemoglobin Concent 34, Red Cell Distribution Width 13.0, Platelet Count 182, Mean Platelet Volume 11.4, Immature Granulocyte % (Auto) 1, Neutrophils (%) (Auto) 60, Lymphocytes (%) (Auto) 26, Monocytes (%) (Auto) 12, Eosinophils (%) (Auto) 2, Basophils (%) (Auto) 1, Neutrophils # (Auto) 8.8H, Lymphocytes # (Auto) 3.8, Monocytes # (Auto) 1.7H, Eosinophils # (Auto) 0.3, Basophils # (Auto) 0.1, Immature Granulocyte # (Auto) 0.1, Neutrophils % (Manual) 61, Lymphocytes % (Manual) 29, Monocytes % (Manual) 6, Eosinophils % (Manual) 4, Blood Morphology Comment NORMAL, Sodium Level 135, Potassium Level 4.0, Chloride Level 107, Carbon Dioxide Level 21, Anion Gap 7, Blood Urea Nitrogen 7, Creatinine 0.71, Estimat Glomerular Filtration Rate 101, BUN/Creatinine Ratio 10, Glucose Level 176H, Calcium Level 7.8L, Corrected Calcium 8.7, Phosphorus Level 2.8, Magnesium Level 1.8, Total Bilirubin 0.7, Aspartate Amino Transf (AST/SGOT) 15, Alanine Aminotransferase (ALT/SGPT) 14, Alkaline Phosphatase 83, Total Protein 5.3L, Albumin 2.9L, Triglycerides Level 60, Cholesterol Level 126, LDL Cholesterol Direct 84, VLDL Cholesterol 12, HDL Cholesterol 38L 05/13/23 11:49: Glucometer 312H Microbiology 05/11/23 MRSA Screen - Final, Complete MRSA not isolated 05/11/23 Blood Culture - Preliminary, Resulted Radiology Chest x-ray (05/11/2023): IMPRESSION: 1. No acute radiographic abnormality in the chest. Ct head/neck (05/11/2023): IMPRESSION: No hemorrhage, edema, fracture or acute abnormalities identified at CT evaluation head and cervical spine. CTA head (05/11/2023): IMPRESSION: 1. Atherosclerosis with approximately 75% stenosis of the left internal carotid artery and 20% stenosis of the right internal carotid artery. 2. Greater than 50% stenosis of the cavernous portions of the bilateral ICAs. 3. 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 Assessment/Plan Assessment/Plan Admission Status: Inpatient Order (span 2 midnights) (1) Stroke Status: Acute Assessment & Plan: Subacute stroke noted in the right frontal parietal lobe on MRI. Likely contributing to patient's seizure. Plan: Swallow study passed, okay to have a regular diet Continue aspirin and Plavix We will start patient on a statin pending lipid panel Ordering amlodipine 5 mg for patient's blood pressure PT ordered Transfer down to fourth floor for further management and observation (2) Seizure Status: Acute Assessment & Plan: Patient admitted for seizure that occurred while being observed in the ED yesterday. Resolved with IV Ativan and Keppra. Patient has not had any further seizures overnight. We did call [facility] this morning to transfer for neurology needs and possible EEG however they declined as it may be secondary to methamphetamine use and does not require urgent EEG. Will have patient follow-up with them in the outpatient. Plan: Continue to observation IV Ativan and Keppra on board as needed We will have patient set up with neurology in the outpatient for further work- up (3) Muscle spasm Status: Acute Assessment & Plan: Patient did have locking of his neck when turning his head to the left. Otherwise no muscle spasms noted. (4) Methamphetamine use Status: Acute Assessment & Plan: Monitor for withdrawal. (5) Diabetes Status: Chronic Assessment & Plan: Sliding scale insulin on board Qualifiers: (6) Smoker Status: Chronic Assessment & Plan: Added nicotine patch as patient was having tobacco cravings this morning (7) Sleep apnea Status: Chronic Assessment & Plan: Continue CPAP at night JAMES MANCILLA MD 05/13/23 1306: Addendum Physician Addendum Addendum Patient reports doing well. He states he has not been out of bed or walked yet but he believes without will be easy to do. He normally ambulates with a cane and is still having difficulties with his left arm. Will order PT OT to see him. Subacute infarct noted on MRI so lipid panel ordered. Bedside dysphagia score ordered. Has SCDs for DVT prophylaxis. Transfer out of the ICU. We did discuss the need to avoid driving for the next 6 months given his seizure. He expressed understanding. I personally have seen and evaluated the patient and performed the physical exam. I agree with the documented assessment and plan. Progress 13:05 BRIELLE ELLIS MD, RESIDENT May 13, 2023 11:55 JAMES MANCILLA MD May 13, 2023 13:06
[2023-05-13] MEDS: amLODIPine 5 MG TABLET PO SCH (12:51)
[2023-05-13 19:40] VITALS: BP 165/74
[2023-05-13 23:17] VITALS: BP 152/84
[2023-05-14 03:23] VITALS: BP 157/65
[2023-05-14 06:13] LABS: BASOPHILS # (AUTO) 0.1 10^3/uL (0.0-0.1); BASOPHILS % (AUTO) 1 % (0-10); EOSINOPHILS # (AUTO) 0.3 10^3/uL (0.0-0.3); EOSINOPHILS % (AUTO) 2 % (0-10); HEMATOCRIT 48 % (40-54); HEMOGLOBIN 16.5 g/dL (13.3-17.7); LYMPHOCYTES % (AUTO) 30 % (12-44); MEAN CORPUSCULAR HEMOGLOBIN 30 pg (25-34); MEAN CORPUSCULAR HGB CONC 35 g/dL (32-36); MEAN CORPUSCULAR VOLUME 87 fL (80-99); MEAN PLATELET VOLUME 11.7 fL (9.0-12.2); MONOCYTES # (AUTO) 1.6 10^3/uL (0.0-1.0); MONOCYTES % (AUTO) 12 % (0-12); NEUTROPHILS # (AUTO) 7.4 10^3/uL (1.8-7.8); NEUTROPHILS % (AUTO) 55 % (42-75); PLATELET COUNT 168 10^3/uL (130-400); WHITE BLOOD COUNT 13.4 10^3/uL (4.3-11.0)
[2023-05-14 06:21] LABS: ALBUMIN 3.4 GM/DL (3.2-4.5); POTASSIUM 3.9 MMOL/L (3.6-5.0)
[2023-05-14 06:23] LABS: CALCIUM 8.7 MG/DL (8.5-10.1)
[2023-05-14] MEDS: POTASSIUM CL 10MEQ/50ML IVPB 50 ML IV SCH (06:23)
[2023-05-14 06:24] LABS: TOTAL PROTEIN 6.5 GM/DL (6.4-8.2)
[2023-05-14] MEDS: POTASSIUM CHLORIDE 20 MEQ TABLET PO SCH (06:24)
[2023-05-14 06:25] LABS: BILIRUBIN,TOTAL 0.6 MG/DL (0.1-1.0)
[2023-05-14 06:28] LABS: CREATININE SERUM 0.83 MG/DL (0.60-1.30)
[2023-05-14] MEDS: MAGNESIUM 1 GM/100 ML IVPB 100 ML IV SCH (06:31)
[2023-05-14] MEDS: inSUlin ASPART 1 UNIT/0.01 ML (PER UNIT) SC SCH ×4 (06:36→21:24)
[2023-05-14 07:06] VITALS: BP 170/89
[2023-05-14] MEDS: amLODIPine 5 MG TABLET PO SCH (09:02)
[2023-05-14] MEDS: ASPIRIN 81 MG CHEWABLE TABLET PO SCH (09:02)
[2023-05-14] MEDS: NICOTINE PATCH REMOVAL TP SCH (09:02)
[2023-05-14] MEDS: CLOPIDOGREL 75 MG TABLET PO SCH (09:02)
[2023-05-14] MEDS: levETIRAcetam 1000 mg/NS 100ml IVPB IV SCH (09:03)
[2023-05-14] MEDS: NICOTINE 21 MG PATCH TD SCH (09:03)
[2023-05-14 11:28] VITALS: BP 166/76
--- NOTE | 2023-05-14 12:20 | Progress Note - Hospitalist ---
Subjective HPI/CC On Admission Date Seen by Provider: May 14, 2023 Subjective/Events-last exam Pt reports doing ok today. No complaints. Was not able to walk with PT yesterday. Still reports lack of field insurance sales manager in his hand. Discussed safe DC plan and need for PT to work with him to ensure safe ambulation. Also will need home health. Objective Exam Vital Signs Vital Signs Date Time Temp Pulse Resp B/P (MAP) Pulse Ox O2 Delivery O2 Flow Rate FiO2 05/14/23 11:28 36.7 98 18 166/76 (106) 97 Room Air 05/14/23 03:23 0.00 0.00 05/12/23 08:00 30 Capillary Refill : Less Than 3 Seconds General Appearance: No Apparent Distress, Chronically ill Respiratory: Lungs Clear, No Respiratory Distress Cardiovascular: Regular Rate, Rhythm, No Murmur Neurologic/Psychiatric: Alert, Oriented x3, Motor Weakness (left upper extremity, 2/5 field insurance sales manager strength, 4/5 upper arm strength) Results/Procedures Lab Laboratory Tests 05/14/23 05:22 Patient resulted labs reviewed. Assessment/Plan Assessment and Plan Assess & Plan/Chief Complaint Assessment: CVA Seizure methamphetamine use Debility Diabetes Tobacco abuse Hypertension Plan: PT/OT Aspirin and Plavix Amlodipine Continue Keppra Encouraged tobacco and illicit drug use cessation Resume Metformin since >48 hours since contrast Nicotine patch dietary services director consulted JAMES MANCILLA MD May 14, 2023 12:20
[2023-05-14 16:01] VITALS: BP 172/79
[2023-05-14] MEDS: metFORMIN 500 MG TABLET PO SCH (17:12)
[2023-05-14] MEDS ORDERED: hydrALAZINE INJECTION 20 MG/ML VIAL IV PRN (19:15)
[2023-05-14 19:30] VITALS: BP 166/90
[2023-05-14] MEDS: LevETIRAcetam 1,000 MG TABLET PO SCH (21:24)
[2023-05-14 23:17] VITALS: BP 145/64
[2023-05-15 03:43] VITALS: BP 139/79
[2023-05-15 05:59] LABS: BASOPHILS # (AUTO) 0.1 10^3/uL (0.0-0.1); BASOPHILS % (AUTO) 1 % (0-10); EOSINOPHILS # (AUTO) 0.4 10^3/uL (0.0-0.3); EOSINOPHILS % (AUTO) 3 % (0-10); HEMATOCRIT 48 % (40-54); HEMOGLOBIN 16.6 g/dL (13.3-17.7); LYMPHOCYTES # (AUTO) 3.1 10^3/uL (1.0-4.0); LYMPHOCYTES % (AUTO) 23 % (12-44); MEAN CORPUSCULAR HEMOGLOBIN 30 pg (25-34); MEAN CORPUSCULAR HGB CONC 35 g/dL (32-36); MEAN CORPUSCULAR VOLUME 87 fL (80-99); MEAN PLATELET VOLUME 11.4 fL (9.0-12.2); MONOCYTES # (AUTO) 1.7 10^3/uL (0.0-1.0); MONOCYTES % (AUTO) 12 % (0-12); NEUTROPHILS # (AUTO) 8.5 10^3/uL (1.8-7.8); NEUTROPHILS % (AUTO) 61 % (42-75); PLATELET COUNT 172 10^3/uL (130-400); WHITE BLOOD COUNT 13.8 10^3/uL (4.3-11.0)
[2023-05-15 06:20] LABS: ALBUMIN 3.4 GM/DL (3.2-4.5); BILIRUBIN,TOTAL 0.5 MG/DL (0.1-1.0); CREATININE SERUM 0.87 MG/DL (0.60-1.30); MAGNESIUM 1.8 MG/DL (1.6-2.4); PHOSPHORUS 3.9 MG/DL (2.3-4.7); POTASSIUM 4.4 MMOL/L (3.6-5.0); TOTAL PROTEIN 6.5 GM/DL (6.4-8.2)
[2023-05-15] MEDS: POTASSIUM CL 10MEQ/50ML IVPB 50 ML IV SCH (06:27)
[2023-05-15] MEDS: MAGNESIUM 1 GM/100 ML IVPB 100 ML IV SCH ×3 (06:28→09:02)
[2023-05-15] MEDS: POTASSIUM CHLORIDE 20 MEQ TABLET PO SCH (06:28)
[2023-05-15] MEDS: inSUlin ASPART 1 UNIT/0.01 ML (PER UNIT) SC SCH (06:41)
[2023-05-15] MEDS: metFORMIN 500 MG TABLET PO SCH (06:42)
[2023-05-15 07:34] VITALS: BP 168/80
[2023-05-15] MEDS ORDERED: amLODIPine 10 MG TABLET PO SCH (09:00)
[2023-05-15] MEDS: CLOPIDOGREL 75 MG TABLET PO SCH (09:02)
[2023-05-15] MEDS: ASPIRIN 81 MG CHEWABLE TABLET PO SCH (09:02)
[2023-05-15] MEDS: NICOTINE PATCH REMOVAL TP SCH (09:02)
[2023-05-15] MEDS: NICOTINE 21 MG PATCH TD SCH (09:02)
[2023-05-15] MEDS: LevETIRAcetam 1,000 MG TABLET PO SCH (09:02)
[2023-05-15] MEDS ORDERED: METF-397 PO (11:12)
[2023-05-15] MEDS ORDERED: LEVE10006 PO (11:12)
[2023-05-15] MEDS ORDERED: NICO1PAT34 TD (11:12)
[2023-05-15] MEDS ORDERED: AMLO-251 PO (11:12)
[2023-05-15] MEDS ORDERED: ASPI81TA64 PO (11:12)
[2023-05-15] MEDS ORDERED: CLOP75TA28 PO (11:12)
--- NOTE | 2023-05-15 11:20 | Discharge Summary ---
BRIELLE ELLIS MD, RESIDENT 05/15/23 1120: Discharge Summary Hospital Course Hospital Course Date of Admission: May 11, 2023 at 22:42 Admission Diagnosis : [facility] Date of Discharge: 05/15/23 Discharge Diagnosis: Seizure, subacute stroke Hospital Course: Patient is a 67-year-old male with a past medical history of hypertension, diabe mitchell who presented with muscle spasms concerning for seizures. He states that this has been ongoing for the last 2 months. Notes that he will have left upper extremity muscle spasms when he turns his head to the left or raises his left arm. He denies any other associated symptoms work-up in the ED was negative however as patient was being observed, he had a 2-1/2-minute grand mal seizure, was postictal. Patient was given a dose of Ativan and Keppra and was ultimately transferred to the ICU for further management. In the ED, work-up was notable for methamphetamine in patient's urine. Chest x-ray and head CT was otherwise negative. 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 We continued treatment with IV Keppra 1000 mg twice daily. Patient had no further seizures while being observed in the ICU. We did talk with [facility] for evaluation of whether an EEG would be appropriate however they determined that likely seizure was due to patient's meth use and would be willing to follow-up in the outpatient. Patient was noted to have left upper extremity deficits and was unable to make a fist with his left hand. MRI was obtained which was notable for subacute stroke in the right frontal parietal lobe. We had physical therapy evaluate patient for safety discharging home. However while in the hospital, patient had no further seizures and was otherwise medically stable. We will discharge patient home with home health services and continue aspirin/Plavix due to subacute stroke that was noted on MRI. We will plan to send referrals to vascular surgery and neurology due to the above findings. We will also have patient follow-up closely with PCP. Will send in prescription for Keppra 1000 mg twice daily to prevent further seizures. Labs and Pending Lab Test: Laboratory Tests 05/14/23 16:06: Glucometer 353H 05/14/23 20:09: Glucometer 260H 05/15/23 05:40: Glucometer 292H, White Blood Count 13.8H, Red Blood Count 5.50, Hemoglobin 16.6, Hematocrit 48, Mean Corpuscular Volume 87, Mean Corpuscular Hemoglobin 30, Mean Corpuscular Hemoglobin Concent 35, Red Cell Distribution Width 12.4, Platelet Count 172, Mean Platelet Volume 11.4, Immature Granulocyte % (Auto) 1, Neutrophils (%) (Auto) 61, Lymphocytes (%) (Auto) 23, Monocytes (%) (Auto) 12, Eosinophils (%) (Auto) 3, Basophils (%) (Auto) 1, Neutrophils # (Auto) 8.5H, Lymphocytes # (Auto) 3.1, Monocytes # (Auto) 1.7H, Eosinophils # (Auto) 0.4H, Basophils # (Auto) 0.1, Immature Granulocyte # (Auto) 0.1, Sodium Level 133L, Potassium Level 4.4, Chloride Level 102, Carbon Dioxide Level 25, Anion Gap 6, Blood Urea Nitrogen 13, Creatinine 0.87, Estimat Glomerular Filtration Rate 95, BUN/Creatinine Ratio 15, Glucose Level 290H, Calcium Level 9.0, Corrected Calcium 9.5, Phosphorus Level 3.9, Magnesium Level 1.8, Total Bilirubin 0.5, Aspartate Amino Transf (AST/SGOT) 11, Alanine Aminotransferase (ALT/SGPT) 14, Alkaline Phosphatase 104, Total Protein 6.5, Albumin 3.4 Microbiology 05/11/23 MRSA Screen - Final, Complete MRSA not isolated 05/11/23 Blood Culture - Preliminary, Resulted Home Meds Active Metformin HCl 500 Mg Tablet 1,000 Mg PO BID@ 30 Days Levetiracetam 1,000 Mg Tablet 1,000 Mg PO BID 30 Days Children's Aspirin (Aspirin) 81 Mg Tab.chew 81 Mg PO DAILY 30 Days Amlodipine Besylate 10 Mg Tablet 10 Mg PO DAILY 30 Days Clopidogrel (Clopidogrel Bisulfate) 75 Mg Tablet 75 Mg PO DAILY 30 Days Nicoderm Cq (Nicotine) 21 Mg/24 Hour Patch.td24 21 Mg TD DAILY@0900 30 Days Assessment/Pt Instructions Please see electronic discharge instructions given to patient. Discharge Instructions Discharge Diet: No Restrictions Activity as Tolerated: Yes Discharge Physical Examination Vital Signs Vital Signs Date Time Temp Pulse Resp B/P (MAP) Pulse Ox O2 Delivery O2 Flow Rate FiO2 05/15/23 08:00 Room Air 05/15/23 07:34 36.4 62 18 168/80 (109) 98 05/15/23 03:43 0.00 0.00 05/12/23 08:00 30 General Appearance: No Apparent Distress, WD/WN HEENT: PERRL/EOMI, Normal ENT Inspection Respiratory: Chest Non Tender, Lungs Clear, Normal Breath Sounds, No Accessory Muscle Use, No Respiratory Distress Cardiovascular: Regular Rate, Rhythm, No Edema, No Murmur Gastrointestinal: Normal Bowel Sounds, Non Tender, Soft Extremity: No Pedal Edema Skin: Normal Color, Warm/Dry Neurologic/Psychiatric: Alert, Oriented x3, Other (Unable to make fist with left hand) Allergies: Coded Allergies: Penicillins (Unverified Allergy, Mild, 03/18/08) Discharge Summary Date of Admission May 11, 2023 at 22:42 Date of Discharge PEEWEE ESTES DO 05/16/23 0505: Discharge Summary Hospital Course Was the Problem List Reviewed?: Yes Assessment/Pt Instructions I personally performed the mejía portions of the visit, discussed case with resident and concur with resident documentation of history, physical exam, assessment and treatment plan unless otherwise noted. Discharge Planning: <30 minutes discharge planning Discharge Instructions Discharge Diet: No Restrictions Discharge Physical Examination General Appearance: No Apparent Distress, WD/WN Allergies: Coded Allergies: Penicillins (Unverified Allergy, Mild, 03/18/08) BRIELLE ELLIS MD, RESIDENT May 15, 2023 11:20 PEEWEE ESTES DO May 16, 2023 05:05
--- NOTE | 2023-05-15 11:24 | Discharge Summary ---
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 He states that this has been ongoing for the last 2 months. Notes that he will have left upper extremity muscle spasms when he turns his head to the left or raises his left arm. He denies any other associated symptoms work-up in the ED was negative however as patient was being observed, he had a 2-1/2-minute grand mal seizure, was postictal. Patient was given a dose of Ativan and Keppra and was ultimately transferred to the ICU for further management. In the ED, work-up was notable for methamphetamine in patient's urine. Chest x-ray and head CT was otherwise negative. 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 We continued treatment with IV Keppra 1000 mg twice daily. Patient had no further seizures while being observed in the ICU. We did talk with [facility] for evaluation of whether an EEG would be appropriate however they determined that likely seizure was due to patient's meth use and would be willing to follow-up in the outpatient. Patient was noted to have left upper extremity deficits and was unable to make a fist with his left hand. MRI was obtained which was notable for subacute stroke in the right frontal parietal lobe. We had physical therapy evaluate patient for safety discharging home. However while in the hospital, patient had no further seizures and was otherwise medically stable. We will discharge patient home with home health services and continue aspirin/Plavix due to subacute stroke that was noted on MRI. We will plan to send referrals to vascular surgery and neurology due to the above findings. We will also have patient follow-up closely with PCP. Will send in prescription for Keppra 1000 mg twice daily to prevent further seizures. Labs and Pending Lab Test: Laboratory Tests 05/14/23 16:06: Glucometer 353H 05/14/23 20:09: Glucometer 260H 05/15/23 05:40: Glucometer 292H, White Blood Count 13.8H, Red Blood Count 5.50, Hemoglobin 16.6, Hematocrit 48, Mean Corpuscular Volume 87, Mean Corpuscular Hemoglobin 30, Mean Corpuscular Hemoglobin Concent 35, Red Cell Distribution Width 12.4, Platelet Count 172, Mean Platelet Volume 11.4, Immature Granulocyte % (Auto) 1, Neutrophils (%) (Auto) 61, Lymphocytes (%) (Auto) 23, Monocytes (%) (Auto) 12, Eosinophils (%) (Auto) 3, Basophils (%) (Auto) 1, Neutrophils # (Auto) 8.5H, Lymphocytes # (Auto) 3.1, Monocytes # (Auto) 1.7H, Eosinophils # (Auto) 0.4H, Basophils # (Auto) 0.1, Immature Granulocyte # (Auto) 0.1, Sodium Level 133L, Potassium Level 4.4, Chloride Level 102, Carbon Dioxide Level 25, Anion Gap 6, Blood Urea Nitrogen 13, Creatinine 0.87, Estimat Glomerular Filtration Rate 95, BUN/Creatinine Ratio 15, Glucose Level 290H, Calcium Level 9.0, Corrected Calcium 9.5, Phosphorus Level 3.9, Magnesium Level 1.8, Total Bilirubin 0.5, Aspartate Amino Transf (AST/SGOT) 11, Alanine Aminotransferase (ALT/SGPT) 14, Alkaline Phosphatase 104, Total Protein 6.5, Albumin 3.4 Microbiology 05/11/23 MRSA Screen - Final, Complete MRSA not isolated 05/11/23 Blood Culture - Preliminary, Resulted Home Meds Active Metformin HCl 500 Mg Tablet 1,000 Mg PO BID@07,17 30 Days Levetiracetam 1,000 Mg Tablet 1,000 Mg PO BID 30 Days Children's Aspirin (Aspirin) 81 Mg Tab.chew 81 Mg PO DAILY 30 Days Amlodipine Besylate 10 Mg Tablet 10 Mg PO DAILY 30 Days Clopidogrel (Clopidogrel Bisulfate) 75 Mg Tablet 75 Mg PO DAILY 30 Days Nicoderm Cq (Nicotine) 21 Mg/24 Hour Patch.td24 21 Mg TD DAILY@0900 30 Days Patient Allergies: Coded Allergies: Penicillins (Unverified Allergy, Mild, 03/18/08) Height (Feet): 5 Height (Inches): 9.00 Weight (Pounds): 230 Weight (Ounces): 6.0 Home Health Need/Face to Face Date of Face to Face: May 15, 2023 Clinical Findings: Generalized weakness and fatigue, Muscle weakness, Unsteady gait Left upper extremity deficits secondary to stroke, ambulates with a cane occasionally I have seen Pt [id number]: Yes Discharged To: Home Diagnosis/Conditions: Diabetes, seizure, left upper extremity muscle spasm Patient is Homebound due to: [place] fall risk due to instabilty, Muscle weakness Homebound Status Due to the above stated illness, injury or surgical procedure (medical condition or diagnosis) and associated clinical findings, the patient is homebound because of his/her inability to leave home except with aid of a supportive device and/or person AND leaving the home requires a considerable and taxing effort or is medically contraindicated. Pt req the following assistanc: Aid of another person, Cane Home Health Nursing Orders Home Health Services Order: Nursing Services, [employer]er-Evaluate & Treat, Physical Therapy-Evaluate & Treat Home Health Infusion Therapy Line Start Date: May 11, 2023 Certify Stmt I certify that this patient is under my care and that I, a nurse practitioner or a physician; a sales assistant displays working with me, had a face to face encounter that - meets the physician face to face encounter requirements with this patient as dated. Discharge Physical Exam General: Alert, Oriented X3 HEENT: Atraumatic Lungs: Clear to Auscultation, Normal Air Movement Heart: Regular Rate, No Murmurs Abdomen: Normal Bowel Sounds, Soft, No Tenderness Extremities: No Edema, Other (unable to make fist with left hand) Skin: No Rashes Neuro: Normal Speech Psych/Mental Status: Mental Status NL BRIELLE ELLIS MD, RESIDENT May 15, 2023 11:24
[2023-05-15 11:25] VITALS: BP 142/72
[2023-05-15] MEDS ORDERED: inSUlin ASPART 1 UNIT/0.01 ML (PER UNIT) SC NR (11:45)
--- NOTE | 2023-05-15 11:53 | Physical Therapy Daily Note ---
PT Daily Note-Current Subjective Patient agrees to PT. Pain Section J - Health Conditions 1. Rarely or not at all 2. Occasionally 3. Frequently 4. Almost constantly 8. Unable to answer Pain Effect on Sleep: 1 Pain Interference with Therapy: 1 Pain Interference w/Day-to-Day: 1 Transfers SCALE: Activities may be completed with or without assistive devices. 9-Smlvycdsef-hivphsl completes the activity by him/herself with no assistance from a helper. 5-Set-up or Clean-up Assistance-helper sets up or cleans up; patient completes activity. [place] assists only prior to or following the activity. 4-Supervision or Touching Assistance-helper provides verbal cues and/or touching/steadying and/or contact guard assistance as patient completes activity. Assistance may be provided throughout the activity or intermittently. 3-Partial/Moderate Assistance-helper does LESS THAN HALF the effort. [place] lifts, holds or supports trunk or limbs, but provides less than half the effort. 2-Substantial/Maximal Assistance-helper does MORE THAN HALF the effort. [place] lifts or holds trunk or limbs and provides more than half the effort. 7-Ehjsltbys-zrdjqf does ALL the effort. Patient does none of the effort to complete the activity. Or, the assistance of 2 or more helpers is required for the patient to complete the activity. If activity was not attempted, code reason: 7-Patient Refused. 9-Not Applicable-not attempted and the patient did not perform the activity before the current illness, exacerbation or injury. 10-Not Attempted due to Environmental Limitations-(lack of equipment, weather restraints, etc.). 88-Not Attempted due to Medical Conditions or Safety Concerns. Sit to Lying (QC): 6 Lying to Sitting/Side of Bed(Q: 6 Sit to Stand (QC): 6 Weight Bearing Right Lower Extremity: Right Full Weight Bearing Left Lower Extremity: Left Full Weight Bearing Gait Training Distance: 300' Walk 10 feet (QC): 6 Walk 50 ft with 2 Turns(QC): 6 Walk 150 ft (QC): 6 Gait Assistive Device: Cane Single Point safe and functional with no deviation Assessment Patient is currently at independent PLOF with all gross motor skills safely and does not require continued skilled PT intervention at this time. PT Half-Way Goals Half-Way Goals PT Half-Way Goals Time Frame: May 20, 2023 Roll Left & Right (QC): 6 Sit to Lying (QC): 6 Lying-Sitting on Side/Bed(QC): 6 Sit to Stand (QC): 6 Chair/Vwg-ft-Sjnyn Xfer(QC): 6 Toilet Transfer (QC): 6 Does the Patient Walk: Yes Walk 10 feet (QC): 6 Walk 50ft with 2 Turns (QC): 6 Walk 150 ft (QC): 6 4 Steps (QC): 4 PT Plan Treatment/Plan Treatment Plan: Discontinue PT Treatment Plan: Bed Mobility, Concurrent Therapy, Education, Functional Activity Brenda, Functional Strength, Gait, Safety, Therapeutic Exercise, Transfers Treatment Duration: May 20, 2023 Frequency: 5 times per week Estimated Hrs Per Day: .25 hour per day Patient and/or Family Agrees t: Yes Time Time In: 1102 Time Out: 1111 DATE: May 15, 2023 Total Billed Treatment Time: 9 Total Billed Treatment 1 visit FA 9 min KYM HINES PT May 15, 2023 11:53
[2023-05-15] MEDS ORDERED: metFORMIN 500 MG TABLET PO SCH (12:00)
--- NOTE | 2023-05-15 12:08 | Occupational Therapy Eval ---
OT Evaluation-General/PLF Medical Diagnosis Admission Date May 11, 2023 at 22:42 Medical Diagnosis: seizure Onset Date: May 11, 2023 Therapy Diagnosis Therapy Diagnosis: weakness Height/Weight Height (Feet): 5 Height (Inches): 9.00 Weight (Pounds): 230 Weight (Ounces): 6.0 Precautions Precautions/Isolations: Fall Prevention, Standard Precautions Referral Physician: Dr. Lucero Referral Reason: Evaluation/Treatment Medical History Pertinent Medical History: DM, HTN Additional Medical History CVA Seizure methamphetamine use Debility Diabetes Tobacco abuse Hypertension Social History Home: Multilevel Current Living Status: Alone Entry Into Home: Stairs With Railing Steps Into Home: 5 ADL-Prior Level of Function SCALE: Activities may be completed with or without assistive devices. 8-Hspyxmnugw-qorllpm completes the activity by him/herself with no assistance from a helper. 5-Set-up or Clean-up Assistance-helper sets up or cleans up; patient completes activity. [place] assists only prior to or following the activity. 4-Supervision or Touching Assistance-helper provides verbal cues and/or touching/steadying and/or contact guard assistance as patient completes activity. Assistance may be provided throughout the activity or intermittently. 3-Partial/Moderate Assistance-helper does LESS THAN HALF the effort. [place] lifts, holds or supports trunk or limbs, but provides less than half the effort. 2-Substantial/Maximal Assistance-helper does MORE THAN HALF the effort. [place] lifts or holds trunk or limbs and provides more than half the effort. 6-Qzmbwcndn-nawcjp does ALL the effort. Patient does none of the effort to complete the activity. Or, the assistance of 2 or more helpers is required for the patient to complete the activity. If activity was not attempted, code reason: 7-Patient Refused. 9-Not Applicable-not attempted and the patient did not perform the activity before the current illness, exacerbation or injury. 10-Not Attempted due to Environmental Limitations-(lack of equipment, weather restraints, etc.). 88-Not Attempted due to Medical Conditions or Safety Concerns. Self Care: Needed Some Help Functional Cognition: Independent Drive Self: No OT Current Status Subjective Agreeable to OT Mental Status/Objective Patient Orientation: Person, Place, Time, Situation Current Hand Dominance: Right Upper Extremity ROM LUE chronic limits d/t CVA RUE WFLs Upper Extremity Coordination RUE WFLS Upper Extremity Strength reports RUE weakness, OT provided instructions for hand weakness to manipulate socks and fasteners ADL-Treatment ADL-Current Initially reports he can not put socks on, OT facilities education for dressing technique and patient completes in figure 4 crossed over knee Eating (QC): 5 Oral Hygiene (QC): 5 Shower/Bathe Self (QC): 7 Upper Body Dressing (QC): 4 Lower Body Dressing (QC): 3 On/Off Footwear (QC): 5 Toileting Hygiene (QC): 7 Education OT Patient Education: Correct positioning, Home exercise program, Modified ADL techniques, Progress toward Goal/Update tx plan, Purpose of tx/functional activities, Reviewed precautions, Rehab process, Safety issues, Transfer techniques, Use of adapted equipment Teaching Recipient: Patient Teaching Methods: Demonstration, Discussion Response to Teaching: Return Demonstration, Reinforcement Needed OT Applications Support Lead Goals Applications Support Lead Goals Eating (QC): 6 Oral Hygiene (QC): 6 Toileting Hygiene (QC): 6 Shower/Bathe Self (QC): 6 Upper Body Dressing (QC): 6 Lower Body Dressing (QC): 6 On/Off Footwear (QC): 6 1=Demonstrate adherence to instructed precautions during ADL tasks. 2=Patient will verbalize/demonstrate understanding of assistive devices/modifications for ADL. 3=Patient will improve strength/tolerance for activity to enable patient to perform ADL's. OT Education/Plan Problem List/Assessment Assessment: Decreased Activ Tolerance, Decreased UE Strength, Impaired Self- Care Skills Discharge Recommendations Plan/Recommendations: Continue POC Therapy Discharge Recommendati: Post Acute OT Treatment Plan/Plan of Care Treatment,Training & Education: Yes Patient would benefit from OT for education, treatment and training to promote independence in ADL's, mobility, safety and/or upper extremity function for ADL's. Plan of Care: ADL Retraining, Functional Mobility, Group Exercise/Act as Ind, UE Funct Exercise/Act, UE Neuromus Re-Ed/Coord Treatment Duration: May 19, 2023 Frequency: 3 times per week (3-5 times per week) Rehab Potential: Good Time Start Time: 10:57 Stop Time: 11:10 DATE: May 15, 2023 Total Time Billed (hr/min): 13 Billed Treatment Time EVM 13 min JEFFERY CHRISTIANSON OT May 15, 2023 12:07
[2023-05-15 14:30] VITALS: BP 142/72
[2023-05-15] MEDS ORDERED: inSUlin ASPART 1 UNIT/0.01 ML (PER UNIT) SC SCH (16:00)
== END 2023-05-15 14:30 | disposition home health service (06) | DRG 65 ==
LOC: EDUNIT# 18:09 → ER 18:13 → ICU 22:42 → 4TH 05-13 16:22
PROVIDERS: ADMIT Family Medicine; ATTEND Internal Medicine
PROC: 5A09357 Assistance with Respiratory Ventilation, Less than 24 Consecutive Hours, Continuous Positive Airway Pressure (ICD-10-PCS; principal; 2023-05-12)
DX: I63.9 Cerebral infarction, unspecified (principal); E87.1 Hypo-osmolality and hyponatremia; I10 Essential (primary) hypertension; F15.90 Other stimulant use, unspecified, uncomplicated; F17.210 Nicotine dependence, cigarettes, uncomplicated; J44.9 Chronic obstructive pulmonary disease, unspecified; G89.29 Other chronic pain; M54.9 Dorsalgia, unspecified; Z79.899 Other long term (current) drug therapy; E11.65 Type 2 diabetes mellitus with hyperglycemia; G47.30 Sleep apnea, unspecified; M62.838 Other muscle spasm; R29.700 NIHSS score 0
CPT/HCPCS: 0042T; 36415; 70450; 70496; 70498; 70553; 71045; 72125; 80053; 80061; 80306; 80320; 81000; 82010; 82550; 82553; 82805; 82947; 83036; 83735; 83874; 84100; 84443; 85007; 85025; 85027; 85610; 85652; 85730; 86141; 87040; 87081; 93005; 93041; 94660; 96365; 96375